=== PATIENT | female | born 1995 | race Caucasian/White ===

== ENCOUNTER 2016-12-26 07:09 | Emergency (ER) | payer OTHER ==
[2016-12-26 07:17] VITALS: BP 124/68
[2016-12-26] MEDS ORDERED: Sodium Chloride 0.9% 1,000 ML IV STA (07:31)
[2016-12-26] MEDS ORDERED: Ondansetron 4 MG/2 ML SDV IVPUSH ONE (07:31)
[2016-12-26] MEDS ORDERED: Acetaminophen 325 MG Tab PO ONE (07:32)
--- NOTE | 2016-12-26 07:37 | EDM.PDOC ---
ED HPI GENERAL MEDICAL PROBLEM - General Chief Complaint: Abdominal Pain Stated Complaint: ABDOMINAL PAIN Time Seen by Provider: 12/26/16 07:27 Source of Information: Reports: Patient History Limitations: Reports: No Limitations - History of Present Illness INITIAL COMMENTS - FREE TEXT/NARRATIVE: The patient presents with right lower abdominal pain. This started yesterday. The pain started in the right upper abdomen but now it has moved to the right lower abdomen. She has nausea but no vomiting. She has no appetite. She denies fever or chills. She has no dysuria or hematuria. The pain is sharp and constant now. She still has her gallbladder and her appendix. She does not think she is . She took a test yesterday that was negative. Onset: Gradual Duration: Day(s): (2) Location: Reports: Abdomen Quality: Reports: Sharp Severity: Moderate Improves with: Reports: None Worsens with: Reports: None Associated Symptoms: Reports: Nausea/Vomiting. Denies: Chest Pain, Cough, Fever /Chills, Headaches, Shortness of Breath Lower Abdominal Pain Score (Numeric/FACES): 8 - Related Data Allergies Allergy/AdvReac Type Severity Reaction Status Date / Time No Known Allergies Allergy Verified 12/26/16 07:17 Home Meds: Home Meds Nitrofurantoin Pike/Macrocryst [Macrobid] 100 mg PO BID #10 cap 12/26/16 [Rx] Ondansetron [Zofran ODT] 4 mg PO Q6H PRN #20 tab.dis 12/26/16 [Rx] Past Medical History - Past Health History Medical/Surgical History: Denies Medical/Surgical History Social & Family History - Tobacco Use Smoking Status *Q: Never Smoker - Caffeine Use Caffeine Use: Reports: Coffee - Recreational Drug Use Recreational Drug Use: No ED ROS GENERAL - Review of Systems Review Of Systems: See Below Constitutional: Reports: No Symptoms HEENT: Reports: No Symptoms Respiratory: Reports: No Symptoms Cardiovascular: Reports: No Symptoms Endocrine: Reports: No Symptoms GI/Abdominal: Reports: Abdominal Pain, Nausea. Denies: Diarrhea, Vomiting : Reports: No Symptoms Musculoskeletal: Reports: No Symptoms ED EXAM, GI/ABD - Physical Exam Exam: See Below Exam Limited By: No Limitations General Appearance: Alert, No Apparent Distress Ears: Normal External Exam Nose: Normal Inspection Head: Atraumatic, Normocephalic Neck: Normal Inspection Respiratory/Chest: No Respiratory Distress, Lungs Clear, Normal Breath Sounds Cardiovascular: Regular Rate, Rhythm, No Edema, No Murmur GI/Abdominal Exam: Soft, No Organomegaly, No Mass, Tender (Generalized tenderness with more pain upon palpation to the right lower abdomen) Course - Vital Signs Last Recorded V/S: Last Vital Signs Temp 97.1 F 12/26/16 07:15 Pulse 89 12/26/16 07:15 Resp 18 12/26/16 07:15 BP 124/68 12/26/16 07:15 Pulse Ox 98 12/26/16 07:15 - Orders/Labs/Meds Orders: Active Orders 24 hr Category Date Time Status Peripheral IV Care [RC] . DIRECTED Care 12/26/16 07:32 Active Sodium Chloride 0.9% [Saline Flush] Med 12/26/16 07:31 Active 10 ml FLUSH ASDIRECTED PRN ED Antiemetic Medication Reflex [OM.PC] Stat Oth 12/26/16 07:31 Ordered Peripheral IV Insertion Adult [OM.PC] Stat Oth 12/26/16 07:31 Ordered Medication Orders Sodium Chloride (Saline Flush) 10 ml FLUSH ASDIRECTED PRN PRN Reason: Keep Vein Open Last Admin: 12/26/16 09:08 Dose: 10 ml Admin: 12/26/16 07:44 Dose: 10 ml Labs: Laboratory Tests 12/26/16 12/26/16 12/26/16 Range/Units 07:19 07:19 07:30 WBC 6.51 (3.98-10.04) K/mm3 RBC 5.33 H (3.98-5.22) M/mm3 Hgb 14.8 (11.2-15.7) gm/L Hct 43.3 (34.1-44.9) % MCV 81.2 (79.4-94.8) fl MCH 27.8 (25.6-32.2) pg MCHC 34.2 (32.2-35.5) g/dl RDW Std Deviation 40.9 (36.4-46.3) fL Plt Count 358 (182-369) K/mm3 MPV 11.6 (9.4-12.3) fl Neut % (Auto) 57.2 (34.0-71.1) % Lymph % (Auto) 30.4 (19.3-51.7) % Pike % (Auto) 8.8 (4.7-12.5) % Eos % (Auto) 2.8 (0.7-5.8) Baso % (Auto) 0.6 (0.1-1.2) % Neut # (Auto) 3.73 (1.56-6.13) K/mm3 Lymph # (Auto) 1.98 (1.18-3.74) K/mm3 Pike # (Auto) 0.57 H (0.24-0.36) K/mm3 Eos # (Auto) 0.18 (0.04-0.36) K/mm3 Baso # (Auto) 0.04 (0.01-0.08) K/mm3 Sodium (136-145) mEq/L Potassium (3.5-5.1) mEq/L Chloride (98-107) mEq/L Carbon Dioxide (21-32) mEq/L Anion Gap (5-15) BUN (7-18) mg/dL Creatinine (0.55-1.02) mg/dL Est Cr Clr Drug Dosing mL/min Estimated GFR (MDRD) (>60) mL/min BUN/Creatinine Ratio (14-18) Glucose (74-106) mg/dL Calcium (8.5-10.1) mg/dL Total Bilirubin (0.2-1.0) mg/dL AST (15-37) U/L ALT (14-59) U/L Alkaline Phosphatase (46-116) U/L Total Protein (6.4-8.2) g/dl Albumin (3.4-5.0) g/dl Globulin gm/dL Albumin/Globulin Ratio (1-2) Lipase (73-393) U/L Urine Color Yellow (Yellow) Urine Appearance Slt cloudy H (Clear) Urine pH 6.0 (5.0-8.0) Ur Specific [place] 1.025 (1.005-1.030) Urine Protein Negative (Negative) Urine Glucose (UA) Negative (Negative) Urine Ketones Negative (Negative) Urine Occult Blood Negative (Negative) Urine Nitrite Negative (Negative) Urine Bilirubin Negative (Negative) Urine Urobilinogen 0.2 (0.2-1.0) Ur Leukocyte Esterase 1+ H (Negative) Urine RBC Not seen (0-5) /hpf Urine WBC 5-10 H (0-5) /hpf Ur Epithelial Cells 0-5 (0-5) /hpf Amorphous Sediment Few H (NOT SEEN) /hpf Urine Bacteria Many H (FEW) /hpf Urine Mucus Few (FEW) /hpf Urine HCG, Qual Negative (NEGATIVE) 12/26/16 Range/Units 07:30 WBC (3.98-10.04) K/mm3 RBC (3.98-5.22) M/mm3 Hgb (11.2-15.7) gm/L Hct (34.1-44.9) % MCV (79.4-94.8) fl MCH (25.6-32.2) pg MCHC (32.2-35.5) g/dl RDW Std Deviation (36.4-46.3) fL Plt Count (182-369) K/mm3 MPV (9.4-12.3) fl Neut % (Auto) (34.0-71.1) % Lymph % (Auto) (19.3-51.7) % Pike % (Auto) (4.7-12.5) % Eos % (Auto) (0.7-5.8) Baso % (Auto) (0.1-1.2) % Neut # (Auto) (1.56-6.13) K/mm3 Lymph # (Auto) (1.18-3.74) K/mm3 Pike # (Auto) (0.24-0.36) K/mm3 Eos # (Auto) (0.04-0.36) K/mm3 Baso # (Auto) (0.01-0.08) K/mm3 Sodium 142 (136-145) mEq/L Potassium 3.7 (3.5-5.1) mEq/L Chloride 107 (98-107) mEq/L Carbon Dioxide 24 (21-32) mEq/L Anion Gap 14.7 (5-15) BUN 12 (7-18) mg/dL Creatinine 0.8 (0.55-1.02) mg/dL Est Cr Clr Drug Dosing 108.17 mL/min Estimated GFR (MDRD) > 60 (>60) mL/min BUN/Creatinine Ratio 15.0 (14-18) Glucose 104 (74-106) mg/dL Calcium 9.0 (8.5-10.1) mg/dL Total Bilirubin 1.1 H (0.2-1.0) mg/dL AST 20 (15-37) U/L ALT 26 (14-59) U/L Alkaline Phosphatase 118 H (46-116) U/L Total Protein 7.0 (6.4-8.2) g/dl Albumin 3.3 L (3.4-5.0) g/dl Globulin 3.7 gm/dL Albumin/Globulin Ratio 0.9 L (1-2) Lipase 173 (73-393) U/L Urine Color (Yellow) Urine Appearance (Clear) Urine pH (5.0-8.0) Ur Specific [place] (1.005-1.030) Urine Protein (Negative) Urine Glucose (UA) (Negative) Urine Ketones (Negative) Urine Occult Blood (Negative) Urine Nitrite (Negative) Urine Bilirubin (Negative) Urine Urobilinogen (0.2-1.0) Ur Leukocyte Esterase (Negative) Urine RBC (0-5) /hpf Urine WBC (0-5) /hpf Ur Epithelial Cells (0-5) /hpf Amorphous Sediment (NOT SEEN) /hpf Urine Bacteria (FEW) /hpf Urine Mucus (FEW) /hpf Urine HCG, Qual (NEGATIVE) Meds: Medications Generic Name Dose Route Start Last Admin Trade Name Freq PRN Reason Stop Dose Admin Sodium Chloride 10 ml 12/26/16 07:31 12/26/16 09:08 Saline Flush FLUSH 10 ml ASDIRECTED PRN Administration Keep Vein Open Discontinued Medications Generic Name Dose Route Start Last Admin Trade Name Freq PRN Reason Stop Dose Admin Acetaminophen 975 mg 12/26/16 07:32 12/26/16 07:44 Tylenol PO 12/26/16 07:33 975 mg NOW ONE Administration Diatrizoate Meglum/Diatrizoate Sod 90 ml 12/26/16 07:50 12/26/16 09:07 Gastrografin 37% PO 12/26/16 07:51 90 ml ONETIME ONE Administration Sodium Chloride 1,000 mls @ 1,000 mls/hr 12/26/16 07:31 12/26/16 07:42 Normal Saline IV 12/26/16 08:30 1,000 mls/hr .BOLUS STA Administration Iopamidol 125 ml 12/26/16 07:50 12/26/16 09:07 Isovue-300 (61%) IVPUSH 12/26/16 07:51 125 ml ONETIME ONE Administration Ondansetron HCl 4 mg 12/26/16 07:31 12/26/16 07:43 Zofran IVPUSH 12/26/16 07:32 4 mg ONETIME ONE Administration Tramadol HCl 100 mg 12/26/16 09:50 Ultram PO 12/26/16 09:51 ONETIME ONE - Re-Assessments/Exams Free Text/Narrative Re-Assessment/Exam: 12/26/16 07:36 I ordered an IV NS 1L bolus, zofran 4mg IV, tylenol 975mg PO, labs, UA and a CT of her abdomen and pelvis. 12/26/16 09:51 Her CBC looked good with a normal WBC. Her CMP looked good. Her UA shows a UTI. Her HCG was negative. Her CT of her abdomen and pelvis shows normal appendix is seen. Several slightly prominent lymph nodes noted within the right lower abdomen possibly due to so-called mesenteric adenitis. No additional abnormality is seen on CT study of the abdomen and pelvis. Her pain is coming back. I ordered some ultram. I will give her macrobid for the UTI and zofran for any nausea or vomiting. Departure - Departure Time of Disposition: 09:55 Disposition: Home, Self-Care 01 Condition: Good Clinical Impression: Mesenteric adenitis UTI (urinary tract infection) Qualifiers: Urinary tract infection type: acute cystitis Hematuria presence: without hematuria Qualified Code(s): N30.00 - Acute cystitis without hematuria - Discharge Information Prescriptions: Nitrofurantoin Pike/Macrocryst [Macrobid] 100 mg PO BID #10 cap Ondansetron [Zofran ODT] 4 mg PO Q6H PRN #20 tab.dis PRN Reason: Nausea/Vomiting Referrals: Concepcion Neville DO [Primary Care Provider] - 1 Week Forms: ED Department Discharge, ED Return to Work/School Form Additional Instructions: Take the macrobid 500mg 2 times per day for 5 days. Take the zofran 1 pill every 6 hours as needed for nausea or vomiting. This mesenteric adenitis is cause by a virus and needs to run it course over the next week. Please return if you have more pain or if you cannot keep anything down. Try motrin or tylenol for pain as needed. - My Orders Last 24 Hours: My Active Orders 12/26/16 07:31 Sodium Chloride 0.9% [Saline Flush] 10 ml FLUSH ASDIRECTED PRN ED Antiemetic Medication Reflex [OM.PC] Stat Peripheral IV Insertion Adult [OM.PC] Stat 12/26/16 07:32 Peripheral IV Care [RC] . DIRECTED - Assessment/Plan Last 24 Hours: My Active Orders 12/26/16 07:31 Sodium Chloride 0.9% [Saline Flush] 10 ml FLUSH ASDIRECTED PRN ED Antiemetic Medication Reflex [OM.PC] Stat Peripheral IV Insertion Adult [OM.PC] Stat 12/26/16 07:32 Peripheral IV Care [RC] . DIRECTED
[2016-12-26] MEDS: Sodium Chloride 0.9% 10 ML Syringe FLUSH PRN ×2 (07:44→09:08)
[2016-12-26] MEDS ORDERED: Diatrizoate Meglumine/Diatrizoate Sodium 37% 120 ML Bottle PO ONE (07:50)
[2016-12-26] MEDS ORDERED: Iopamidol 612 MG/ML 150 ML Bottle IVPUSH ONE (07:50)
--- NOTE | 2016-12-26 09:27 | CT ---
CT abdomen and pelvis Technique: Multiple axial sections were obtained from above the dome of the diaphragm inferiorly through the pubic symphysis. Intravenous and oral contrast was utilized. Comparison: No prior abdominal imaging. Findings: Appendix is seen and appears normal. Several slightly prominent lymph nodes are seen within the mesentery and adjacent to the cecum. Difficult to exclude mesenteric adenitis. Visualized lung bases are clear. Liver shows no focal abnormality. Spleen appears within normal limits. Adrenal glands show no nodule. Pancreas is within normal limits. Gallbladder shows no calcified gallstones. Kidneys show symmetric contrast enhancement without hydronephrosis or mass. Aorta shows no aneurysmal dilatation. No retroperitoneal adenopathy is seen. No pelvic mass or adenopathy is seen. Bone window settings were reviewed which appears within normal limits for the patient's age. Impression: 1. Normal appendix is seen. Several slightly prominent lymph nodes noted within the right lower abdomen possibly due to so-called mesenteric adenitis. 2. No additional abnormality is seen on CT study of the abdomen and pelvis. Diagnostic code #2
[2016-12-26] MEDS ORDERED: traMADol 50 MG Tab PO ONE (09:50)
== END 2016-12-26 10:08 | disposition home or self-care (01) ==
LOC: JD.ED 07:09
DX: I88.0 Nonspecific mesenteric lymphadenitis (principal); N30.00 Acute cystitis without hematuria
CPT/HCPCS: 36415; 74177; 80053; 81001; 81025; 83690; 85025; 96361; 96374; 99284; A9270; J2405; J7040; J7050; Q9963; Q9967

== ENCOUNTER 2017-09-11 18:53 | Emergency (ER) | payer OTHER ==
--- NOTE | 2017-09-11 19:01 | EDM.PDOC ---
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 Associated diffuse lower abdominal cramps and pressure discomfort also pressure discomfort in her lower back. She has not yet had much in the way of care. She scheduled for an ultrasound next week and then to see Dr. Bravo the following week. She states her last menstrual period was Apr.15. These dates would place her at a 17 week completed gestation. Cycles have been quite regular up until that time. No previous abdominal surgery. He states it was more spotting today there was not enough blood to soak a pad. And bleeding at this point time seems to have eased up. So had quite a bit of problems with constipation during the from vitamins. Onset: Today Onset Date: 09/11/17 Onset Time: 12:00 Duration: Hour(s): Location: Reports: Abdomen (Spotting per vagina with diffuse lower abdominal discomfort.), Other Quality: Reports: Ache ( Associated menstrual cramps.), Pressure, Other Severity: Moderate (Cramps) Improves with: Reports: None Worsens with: Reports: None Context: Reports: Other. Denies: Activity, Exercise, Lifting, Sick Contact, Trauma Associated Symptoms: Reports: Malaise, Nausea/Vomiting. 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 (see below) (None.) Lower Abdomen Pain Score (Numeric/FACES): 2 - Related Data Allergies Allergy/AdvReac Type Severity Reaction Status Date / Time No Known Allergies Allergy Verified 09/11/17 19:08 Home Meds: Home Meds Progesterone,Micronized [Progesterone] 100 mg PO BID 09/11/17 [History] metFORMIN [Glucophage] 1,000 mg PO BIDMEALS 09/11/17 [History] Past Medical History - Past Health History Medical/Surgical History: Denies Medical/Surgical History : 1 Para: 0 Social & Family History - Family History Family Medical History: Noncontributory - Caffeine Use Caffeine Use: Reports: Coffee - Living Situation & Occupation Living situation: Reports: Occupation: Employed ED ROS GENERAL - Review of Systems Review Of Systems: See Below Constitutional: Reports: Fatigue. Denies: Fever, Chills HEENT: Reports: No Symptoms Respiratory: Reports: No Symptoms Cardiovascular: Reports: No Symptoms Endocrine: Reports: No Symptoms GI/Abdominal: Reports: Abdominal Pain (See history present illness), Constipation : Reports: Frequency, Other (Spotting per vagina started today with associated menstrual cramps.) Musculoskeletal: Reports: Back Pain Skin: Reports: No Symptoms (Mild low back pressure discomfort) Neurological: Reports: No Symptoms Psychiatric: Reports: No Symptoms ED EXAM - Physical Exam Exam: See Below Exam Limited By: No Limitations General Appearance: Alert, WD/WN, No Apparent Distress Eye Exam: Bilateral Eye: Normal Inspection Respiratory/Chest: No Respiratory Distress, Lungs Clear, Normal Breath Sounds, No Accessory Muscle Use Cardiovascular: Normal Peripheral Pulses, Regular Rate, Rhythm, No Edema, No Gallop, No Murmur GI/Abdominal Exam: Normal Bowel Sounds, Soft, Non-Tender, No Organomegaly, No Abnormal Bruit, No Mass, Pelvis Stable, Other (Uterus is not palpable abdominally.) (Female) Exam: Enlarged Uterus (Uterus is anteverted and about 6-8 weeks in gestation. It is moderately tender to touch. Note this is much smaller in size than her dates would suggest.), Vaginal Bleeding (Darker blood noted on gloved fingers.). No: Adnexal Mass (L), Adnexal Mass (R), Cervical Dilatation (Cervix is closed.) Extremities: Normal Inspection, Normal Range of Motion, Non-Tender, No Pedal Edema Neurological: Alert, Oriented, CN II-XII Intact, Normal Cognition, Normal Gait Psychiatric: Normal Affect, Normal Mood Skin Exam: Warm, Dry, Intact, Normal Color, No Rash Course - Vital Signs Last Recorded V/S: Last Vital Signs Temp 36.2 C 09/11/17 19:09 Pulse 90 09/11/17 19:09 Resp 18 09/11/17 19:09 BP 120/72 09/11/17 19:09 Pulse Ox 99 09/11/17 19:09 - Orders/Labs/Meds Orders: Active Orders 24 hr Category Date Time Status OB Transvaginal [US] Stat Exams 09/11/17 19:32 Taken PATIENT RETYPE [BBK] Stat Lab 09/11/17 19:25 Results RH IMMUNE GLOBULIN [BBK] Stat Lab 09/11/17 19:25 Results RHIG WORKUP, [BBK] Stat Lab 09/11/17 19:25 Results TYPE AND SCREEN [BBK] Stat Lab 09/11/17 19:25 Results URINALYSIS W/MICROSCOPIC [UA W/MICROSCOPIC] [URIN] Stat Lab 09/11/17 19:31 Ordered Labs: Laboratory Tests 09/11/17 09/11/17 09/11/17 Range/Units 19:25 19:25 19:25 WBC 10.33 H (3.98-10.04) K/mm3 RBC 5.11 (3.98-5.22) M/mm3 Hgb 14.3 (11.2-15.7) gm/L Hct 41.9 (34.1-44.9) % MCV 82.0 (79.4-94.8) fl MCH 28.0 (25.6-32.2) pg MCHC 34.1 (32.2-35.5) g/dl RDW Std Deviation 43.0 (36.4-46.3) fL Plt Count 345 (182-369) K/mm3 MPV 12.1 (9.4-12.3) fl Neutrophils % (Manual) 65 H (40-60) % Band Neutrophils % 0 (0-10) % Lymphocytes % (Manual) 30 (20-40) % Atypical Lymphs % 0 % Monocytes % (Manual) 0 L (2-10) % Eosinophils % (Manual) 3 (0.7-5.8) % Basophils % (Manual) 1 (0.1-1.2) Myelocytes % 1 Platelet Estimate Adequate RBC Morph Comment Normal Sodium 137 (136-145) mEq/L Potassium 3.6 (3.5-5.1) mEq/L Chloride 102 (98-107) mEq/L Carbon Dioxide 24 (21-32) mEq/L Anion Gap 14.6 (5-15) BUN 11 (7-18) mg/dL Creatinine 0.9 (0.55-1.02) mg/dL Est Cr Clr Drug Dosing 96.15 mL/min Estimated GFR (MDRD) > 60 (>60) mL/min BUN/Creatinine Ratio 12.2 L (14-18) Glucose 95 (74-106) mg/dL Calcium 9.2 (8.5-10.1) mg/dL Total Bilirubin 0.5 (0.2-1.0) mg/dL AST 19 (15-37) U/L ALT 32 (14-59) U/L Alkaline Phosphatase 104 (46-116) U/L Total Protein 6.9 (6.4-8.2) g/dl Albumin 3.3 L (3.4-5.0) g/dl Globulin 3.6 gm/dL Albumin/Globulin Ratio 0.9 L (1-2) HCG, Quant 35808.0 mIU/mL Urine Color (Yellow) Urine Appearance (Clear) Urine pH (5.0-8.0) Ur Specific [place] (1.005-1.030) Urine Protein (Negative) Urine Glucose (UA) (Negative) Urine Ketones (Negative) Urine Occult Blood (Negative) Urine Nitrite (Negative) Urine Bilirubin (Negative) Urine Urobilinogen (0.2-1.0) Ur Leukocyte Esterase (Negative) Urine RBC (0-5) /hpf Urine WBC (0-5) /hpf Ur Epithelial Cells (0-5) /hpf Urine Bacteria (FEW) /hpf Urine Mucus (FEW) /hpf Blood Type AB NEGATIVE Gel Antibody Screen Negative Rhogam Indicated Yes 09/11/17 Range/Units 19:31 WBC (3.98-10.04) K/mm3 RBC (3.98-5.22) M/mm3 Hgb (11.2-15.7) gm/L Hct (34.1-44.9) % MCV (79.4-94.8) fl MCH (25.6-32.2) pg MCHC (32.2-35.5) g/dl RDW Std Deviation (36.4-46.3) fL Plt Count (182-369) K/mm3 MPV (9.4-12.3) fl Neutrophils % (Manual) (40-60) % Band Neutrophils % (0-10) % Lymphocytes % (Manual) (20-40) % Atypical Lymphs % % Monocytes % (Manual) (2-10) % Eosinophils % (Manual) (0.7-5.8) % Basophils % (Manual) (0.1-1.2) Myelocytes % Platelet Estimate RBC Morph Comment Sodium (136-145) mEq/L Potassium (3.5-5.1) mEq/L Chloride (98-107) mEq/L Carbon Dioxide (21-32) mEq/L Anion Gap (5-15) BUN (7-18) mg/dL Creatinine (0.55-1.02) mg/dL Est Cr Clr Drug Dosing mL/min Estimated GFR (MDRD) (>60) mL/min BUN/Creatinine Ratio (14-18) Glucose (74-106) mg/dL Calcium (8.5-10.1) mg/dL Total Bilirubin (0.2-1.0) mg/dL AST (15-37) U/L ALT (14-59) U/L Alkaline Phosphatase (46-116) U/L Total Protein (6.4-8.2) g/dl Albumin (3.4-5.0) g/dl Globulin gm/dL Albumin/Globulin Ratio (1-2) HCG, Quant mIU/mL Urine Color Yellow (Yellow) Urine Appearance Clear (Clear) Urine pH 6.5 (5.0-8.0) Ur Specific [place] 1.010 (1.005-1.030) Urine Protein Negative (Negative) Urine Glucose (UA) Negative (Negative) Urine Ketones Negative (Negative) Urine Occult Blood 3+ H (Negative) Urine Nitrite Negative (Negative) Urine Bilirubin Negative (Negative) Urine Urobilinogen 0.2 (0.2-1.0) Ur Leukocyte Esterase Negative (Negative) Urine RBC 0-5 (0-5) /hpf Urine WBC 0-5 (0-5) /hpf Ur Epithelial Cells 0-5 (0-5) /hpf Urine Bacteria Occasional (FEW) /hpf Urine Mucus Not seen (FEW) /hpf Blood Type Gel Antibody Screen Rhogam Indicated - Radiology Interpretation Free Text/Narrative:: 21-year-old female presents the ED for evaluation of spotting per vagina in . She is clinically right around 12 weeks gestation. Last menstrual period was April 15. She has not yet had much in the way care. She is scheduled for a ultrasound next week and to see Dr. Bravo the following week. She states that has not passed enough blood per vagina to soak a pad and the bleeding seems to be eased up over the last few hours. Still has a lot of lower abdominal suprapubic pressure discomfort radiating into her lower back. Of note she is 1 para 0. Associated problems with constipation secondary to use of vitamins. Benign abdominal examination. - Re-Assessments/Exams Free Text/Narrative Re-Assessment/Exam: 09/11/17 20:26 transvaginal ultrasound reveals a gestational sac that is corresponding to gestational age of 6 weeks 6 days. No pole or yolk sac is appreciated indicating a blighted ovum. There is a small subchorionic hemorrhage or hematoma measuring 2.7 x 2.1 x 0.9 cm. His fluid is noted within the cervix no myometrial masses appreciated trace fluid within the cul-de-sac as well. Patient advised in this regard that she will go onto a miscarriage. Was to be expected be heavier than normal. She may use Motrin 600 mg every 6 hours as needed for relief of abdominal pain and cramping. 09/11/17 20:29 Labs revealed a white count of 10.33 with 65% neutrophils and no bands reported. Hemoglobin is good at 14.3 with hematocrit of 41.9. Sodium is 137 with a potassium of 3.6. Chloride is 102 with a bicarbonate 24. Anion gap is 14.6. B1 is 11 with a creatinine of 0.9. EGFR is greater than 60. Glucose is 95. Calcium is 9.2. Liver function is normal. Albumin fraction slightly low at 3.3. HCG is 49,738. This would correlate with a 4-5 week gestation. Urinalysis shows 3+ blood. No signs of infection. Blood type is not yet available. 09/11/17: blood type is AB-. She will therefore require RhoGAM. Order placed into lab. Departure - Departure Time of Disposition: 21:12 Disposition: Home, Self-Care 01 Condition: Fair Clinical Impression: Inevitable spontaneous - Discharge Information Referrals: Bernarda Smith PA-C [Primary Care Provider] - Forms: ED Department Discharge Additional Instructions: Evaluation the emergency room today in regards to known of on clear duration. Last menstrual period was around April 15 which would make you 17 weeks again. However examination did not reveal the uterus to be enlarged enough to support a 17 week . It was more like 6-8 weeks to us in size. Cervix is closed. He had developed spotting per vagina most of the day today the/with increased abdominal cramping pain. Hormone of is still positive at greater than 49,000. Ultrasound however shows that what we call an empty gestational sac. This means that there is a that would correlate with 6 weeks and 6 days but there is no evidence of any fetus or yolk sac. His mother nature turned off this likely due to congenital abnormalities of the baby that were incompatible with life. It does this often 3 -4 weeks ago and miscarriage starts to occur now. We call this an inevitable miscarriage. Due to your blood typing AB Rh- you required a shot of RhoGAM to prevent sensitization of future pregnancies to Rh- red blood cells. Treatment now is Motrin 600 mg every 6 hours needed for relief of abdominal pain and cramping. Expect a much heavier period than what you've expression the past for the next 2 days. He would need to return to the emergency department or follow- up with Dr. Bravo in the clinic if you are soaking a pad per hour for more than 2 consecutive hours. Suggest follow-up with Dr. Bravo in one week's time. - My Orders Last 24 Hours: My Active Orders 09/11/17 19:25 PATIENT RETYPE [BBK] Stat RH IMMUNE GLOBULIN [BBK] Stat RHIG WORKUP, [BBK] Stat TYPE AND SCREEN [BBK] Stat 09/11/17 19:31 URINALYSIS W/MICROSCOPIC [UA W/MICROSCOPIC] [URIN] Stat 09/11/17 19:32 OB Transvaginal [US] Stat - Assessment/Plan Last 24 Hours: My Active Orders 09/11/17 19:25 PATIENT RETYPE [BBK] Stat RH IMMUNE GLOBULIN [BBK] Stat RHIG WORKUP, [BBK] Stat TYPE AND SCREEN [BBK] Stat 09/11/17 19:31 URINALYSIS W/MICROSCOPIC [UA W/MICROSCOPIC] [URIN] Stat 09/11/17 19:32 OB Transvaginal [US] Stat
[2017-09-11 19:13] VITALS: BP 120/72
--- NOTE | 2017-09-12 08:40 | US ---
First trimester obstetrical ultrasound: Multiple real-time images were obtained transvaginally. Comparison: No prior study for current . Dates: LMP: LMP given as 04/15/17, AKBAR 01/20/18, gestational age 21 weeks 2 days Current ultrasound: AKBAR 05/01/18, gestational age 6 weeks 6 days Single gestational sac is seen. No yolk sac or pole are seen. Small subchorionic hemorrhage is seen. Maternal ovaries are within normal limits. Minimal fluid is seen within the endocervical canal. Minimal free fluid within the cul-de-sac is seen which is felt to be incidental. Impression: 1. Single intrauterine gestational sac without pole or yolk sac suspicious for blighted ovum. 2. Other incidental findings as noted above. Diagnostic code #3 I agree with preliminary report from [facility], finalized at 09/11/17, 9:56 PM Central Time
== END 2017-09-11 21:21 | disposition home or self-care (01) ==
LOC: JD.ED 18:53
DX: O03.9 Complete or unspecified spontaneous abortion without complication (principal); Z3A.12 12 weeks gestation of pregnancy
CPT/HCPCS: 36415; 76817; 80053; 81001; 84702; 85007; 85027; 86850; 86900; 86901; 96372; 99284; J2790

== ENCOUNTER 2018-05-18 17:22 | Emergency (ER) | payer OTHER ==
[2018-05-18 17:40] VITALS: BP 124/74
--- NOTE | 2018-05-18 18:07 | EDM.PDOC ---
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 She states that she is around 7-8 weeks and she had a previous miscarriage in September 2017 so was worried that it might be something more ominous than just urinary symptoms. She has had an early visit with Dr. Willoughby and was assured that everything was going as planned. She denies any pelvic pain, discharge, or bleeding. She states that she does have urinary frequency and urgency that started today along with the pressure. She further denies any flank pain or back pain at this time, she states that she does have some mild nausea but has not vomited nor had diarrhea and is slightly constipated as well. She states that she has had multiple UTIs in the past. She also notes that she still has her appendix and gallbladder. She further denies any fever/chills. 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 - Past Surgical History HEENT Surgical History: Reports: Oral Surgery Social & Family History - Family History Family Medical History: Noncontributory - Tobacco Use Smoking Status *Q: Never Smoker - Caffeine Use Caffeine Use: Reports: Coffee - Recreational Drug Use Recreational Drug Use: No - Living Situation & Occupation Living situation: Reports: Occupation: Employed ED ROS GENERAL - Review of Systems Review Of Systems: See Below Constitutional: Denies: Fever, Chills, Malaise HEENT: Reports: No Symptoms Respiratory: Reports: No Symptoms Cardiovascular: Reports: No Symptoms Endocrine: Reports: No Symptoms GI/Abdominal: Reports: Constipation, Nausea. Denies: Diarrhea, Vomiting : Reports: Dysuria (Pelvic pressure), Frequency, Urgency. Denies: Discharge, Hematuria Musculoskeletal: Reports: No Symptoms Skin: Reports: No Symptoms Neurological: Reports: No Symptoms Psychiatric: Reports: No Symptoms Hematologic/Lymphatic: Reports: No Symptoms Immunologic: Reports: No Symptoms ED EXAM - Physical Exam Exam: See Below Exam Limited By: No Limitations General Appearance: Alert, WD/WN, No Apparent Distress Throat/Mouth: Normal Inspection, Normal Oropharynx, No Airway Compromise Respiratory/Chest: No Respiratory Distress, Lungs Clear, Normal Breath Sounds, No Accessory Muscle Use, Chest Non-Tender Cardiovascular: Normal Peripheral Pulses, Regular Rate, Rhythm, No Murmur GI/Abdominal Exam: Normal Bowel Sounds, Soft, Non-Tender, No Distention, No Mass (Female) Exam: Other (Deferred) Back Exam: Normal Inspection, Full Range of Motion Extremities: Normal Inspection, Normal Capillary Refill Neurological: Alert, Oriented, Normal Cognition, No Motor/Sensory Deficits Psychiatric: Normal Affect, Normal Mood Skin Exam: Warm, Dry, Intact, Normal Color, No Rash Course - Vital Signs Last Recorded V/S: Last Vital Signs Temp 98.2 F 05/18/18 17:40 Pulse 83 05/18/18 17:40 Resp 20 05/18/18 17:40 BP 124/74 05/18/18 17:40 Pulse Ox 100 05/18/18 17:40 - Orders/Labs/Meds Labs: Laboratory Tests 05/18/18 Range/Units 18:40 Urine Color Yellow (Yellow) Urine Appearance Clear (Clear) Urine pH 7.0 (5.0-8.0) Ur Specific [place] 1.020 (1.005-1.030) Urine Protein Negative (Negative) Urine Glucose (UA) Negative (Negative) Urine Ketones Negative (Negative) Urine Occult Blood Negative (Negative) Urine Nitrite Negative (Negative) Urine Bilirubin Negative (Negative) Urine Urobilinogen 0.2 (0.2-1.0) Ur Leukocyte Esterase Negative (Negative) Urine RBC 0-5 (0-5) /hpf Urine WBC 0-5 (0-5) /hpf Ur Epithelial Cells 0-5 (0-5) /hpf Urine Bacteria Few (FEW) /hpf Urine Mucus Not seen (FEW) /hpf - Re-Assessments/Exams Free Text/Narrative Re-Assessment/Exam: 05/18/18 18:32 Patient presents to the ED for evaluation of pelvic pressure and frequency and urinary urgency. A UA was obtained for evaluation, and in lieu of other symptoms such as vaginal bleeding, cramping, or discharge I do not believe that this is any type of miscarriage in nature at this time. The patient was assured that this did not sound as if it were a miscarriage and that we would wait for the UA results to determine further testing. 05/18/18 19:05 The UA did return and is completely clean and is not acutely infected. I will reassure the patient that she does not have any further signs or symptoms of a possible miscarriage and we'll recommend that she take it easy for the next few days to see if this doesn't alleviate some of her symptoms. Departure - Departure Time of Disposition: 19:05 Disposition: Home, Self-Care 01 Condition: Fair Clinical Impression: Pelvic pressure in - Discharge Information *PRESCRIPTION DRUG MONITORING PROGRAM REVIEWED*: No *COPY OF PRESCRIPTION DRUG MONITORING REPORT IN PATIENT [place]: No Instructions: Pelvic Pain, Female, [id number] Referrals: Tenisha Willoughby MD [Primary Care Provider] - Forms: ED Department Discharge Additional Instructions: You have been evaluated in the ED for your pelvic pressure and urinary frequency. Your urinalysis did not demonstrate any signs of acute infection in this visit. It is unlikely that your symptoms are due to any type of miscarriage. Recommend that you do not over-exert yourself for the next few days to see if this doesn't help alleviate the symptoms. Please keep your appointment with your OB as previously scheduled. If you should develop vaginal bleeding, increased pelvic cramping, or vaginal discharge, this would be cause for concern and you should come back to the ED immediately for re-evaluation. Please return to the ED if your symptoms should change or worsen.
== END 2018-05-18 19:19 | disposition home or self-care (01) ==
LOC: JD.ED 17:22 → SUPCPDRO 17:22 → JD.ED 19:19
DX: O99.89 Other specified diseases and conditions complicating pregnancy, childbirth and the puerperium (principal); R10.2 Pelvic and perineal pain
CPT/HCPCS: 81001; 99284

== ENCOUNTER 2018-08-23 20:29 | Emergency (ER) | payer OTHER ==
[2018-08-23 20:59] VITALS: BP 133/84
[2018-08-23] MEDS ORDERED: Acetaminophen 325 MG Tab PO ONE (21:57)
[2018-08-23] MEDS ORDERED: Sodium Chloride 0.9% 10 ML Syringe FLUSH PRN (21:57)
[2018-08-23] MEDS ORDERED: Ondansetron 4 MG/2 ML SDV IVPUSH ONE (21:57)
[2018-08-23] MEDS ORDERED: Sodium Chloride 0.9% 1,000 ML IV SCH (22:00)
--- NOTE | 2018-08-23 22:03 | EDM.PDOC ---
ED HPI GENERAL MEDICAL PROBLEM - General Chief Complaint: Gastrointestinal Problem Stated Complaint: SORE RIBS AND CHEST 19WKS PG Time Seen by Provider: 08/23/18 21:41 Source of Information: Reports: Patient, RN Notes Reviewed History Limitations: Reports: No Limitations - History of Present Illness INITIAL COMMENTS - FREE TEXT/NARRATIVE: Patient is a 22-year-old female who presents to the ED for the evaluation of nausea and vomiting. The patient notes that she is 19 weeks . She states that the vomiting started yesterday, and has been on and off since. She states she's not been able to keep much down for liquids or foods. She states that she is also having some diarrhea with this. She states that her ribs are sore due to the vomiting, and would rate this at an 8 out of 10 today. She has not taken any Tylenol for this pain. She states that the nausea started at roughly 4:45 PM yesterday. The patient states that she is still feeling the baby move okay, and is not having any lower abdominal cramping or vaginal bleeding at this time. 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 - Past Surgical History HEENT Surgical History: Reports: Oral Surgery Social & Family History - Family History Family Medical History: Noncontributory - Tobacco Use Smoking Status *Q: Never Smoker - Caffeine Use Caffeine Use: Reports: None - Living Situation & Occupation Living situation: Reports: Occupation: Employed ED ROS GENERAL - Review of Systems Review Of Systems: See Below Constitutional: Denies: Fever, Chills HEENT: Reports: No Symptoms Respiratory: Reports: No Symptoms Cardiovascular: Reports: No Symptoms Endocrine: Reports: No Symptoms GI/Abdominal: Reports: Abdominal Pain (upper abdominal pain), Diarrhea, Decreased Appetite, Nausea, Vomiting : Reports: No Symptoms Musculoskeletal: Reports: No Symptoms Skin: Reports: No Symptoms Neurological: Reports: No Symptoms Psychiatric: Reports: No Symptoms Hematologic/Lymphatic: Reports: No Symptoms Immunologic: Reports: No Symptoms ED EXAM, GI/ABD - Physical Exam Exam: See Below Exam Limited By: No Limitations General Appearance: Alert, WD/WN, No Apparent Distress Respiratory/Chest: No Respiratory Distress, Lungs Clear, Normal Breath Sounds, No Accessory Muscle Use, Chest Non-Tender Cardiovascular: Normal Peripheral Pulses, Regular Rate, Rhythm, No Murmur GI/Abdominal Exam: Normal Bowel Sounds, Soft, No Organomegaly, No Distention, No Mass, Tender (mainly in epigastrium) (Female) Exam: Other ( heart rate is 140bpm.) Extremities: Normal Inspection, Normal Capillary Refill Neurological: Alert, Oriented, Normal Cognition, No Motor/Sensory Deficits Psychiatric: Normal Affect, Normal Mood Skin Exam: Warm, Dry, Intact, Normal Color, No Rash Course - Vital Signs Last Recorded V/S: Last Vital Signs Temp Pulse 87 08/23/18 20:55 Resp 18 08/23/18 20:55 BP 133/84 08/23/18 20:55 Pulse Ox 100 08/23/18 20:55 - Orders/Labs/Meds Orders: Active Orders 24 hr Category Date Time Status Peripheral IV Care [RC] . DIRECTED Care 08/23/18 21:57 Ordered Sodium Chloride 0.9% [Normal Saline] 1,000 ml Med 08/23/18 22:00 Ordered IV ASDIRECTED Sodium Chloride 0.9% [Saline Flush] Med 08/23/18 21:57 Ordered 10 ml FLUSH ASDIRECTED PRN Peripheral IV Insertion Adult [OM.PC] Routine Oth 08/23/18 21:57 Ordered Medication Orders Sodium Chloride (Normal Saline) 1,000 mls @ 999 mls/hr IV ASDIRECTED PAOLA Last Admin: 08/23/18 22:07 Dose: 999 mls/hr Sodium Chloride (Saline Flush) 10 ml FLUSH ASDIRECTED PRN PRN Reason: Keep Vein Open Last Admin: 08/23/18 22:08 Dose: 10 ml Meds: Medications Generic Name Dose Route Start Last Admin Trade Name Freq PRN Reason Stop Dose Admin Sodium Chloride 1,000 mls @ 999 mls/hr 08/23/18 22:00 08/23/18 22:07 Normal Saline IV 999 mls/hr ASDIRECTED PAOLA Administration Sodium Chloride 10 ml 08/23/18 21:57 08/23/18 22:08 Saline Flush FLUSH 10 ml ASDIRECTED PRN Administration Keep Vein Open Discontinued Medications Generic Name Dose Route Start Last Admin Trade Name Aneta PRN Reason Stop Dose Admin Acetaminophen 650 mg 08/23/18 21:57 08/23/18 22:07 Tylenol PO 08/23/18 21:58 650 mg NOW ONE Administration Ondansetron HCl 4 mg 08/23/18 21:57 08/23/18 22:07 Zofran IVPUSH 08/23/18 21:58 4 mg ONETIME ONE Administration - Re-Assessments/Exams Free Text/Narrative Re-Assessment/Exam: 08/23/18 22:02 Patient presents to the ED for the evaluation of nausea vomiting and diarrhea. This likely due to a viral gastroenteritis in nature. Have ordered IV fluids to be started, 4 mg IV Zofran, and 650 mg Tylenol for initial management. 08/23/18 22:57 Patient was reassessed at bedside, and states she is feeling much better. She was not given the 650 mg Tylenol for some reason. I have discontinued this medication, as she does not want to take this at this time. I will discharge her home with general recommendations, after her fluids are completed. Departure - Departure Time of Disposition: 22:58 Disposition: Home, Self-Care 01 Condition: Fair Clinical Impression: Viral gastroenteritis - Discharge Information *PRESCRIPTION DRUG MONITORING PROGRAM REVIEWED*: No *COPY OF PRESCRIPTION DRUG MONITORING REPORT IN PATIENT [place]: No Instructions: Viral Gastroenteritis, Adult, [id number] Referrals: Tenisha Willoughby MD [Primary Care Provider] - Forms: ED Department Discharge Additional Instructions: You have been evaluated in the ED for nausea/vomiting/diarrhea. It is likely that this is caused from a viral gastroenteritis. You have received IV fluid in the ED to help with the dehydration from the vomiting and diarrhea. Over the next 24-48 hours please try to limit diet to clear liquids and advance as tolerate to a bland diet to alleviate symptoms of nausea/vomiting/diarrhea. Please return to the ED if your symptoms should change or worsen. - My Orders Last 24 Hours: My Active Orders 08/23/18 21:57 Peripheral IV Care [RC] . DIRECTED Sodium Chloride 0.9% [Saline Flush] 10 ml FLUSH ASDIRECTED PRN Peripheral IV Insertion Adult [OM.PC] Routine 08/23/18 22:00 Sodium Chloride 0.9% [Normal Saline] 1,000 ml IV ASDIRECTED - Assessment/Plan Last 24 Hours: My Active Orders 08/23/18 21:57 Peripheral IV Care [RC] . DIRECTED Sodium Chloride 0.9% [Saline Flush] 10 ml FLUSH ASDIRECTED PRN Peripheral IV Insertion Adult [OM.PC] Routine 08/23/18 22:00 Sodium Chloride 0.9% [Normal Saline] 1,000 ml IV ASDIRECTED
== END 2018-08-23 23:13 | disposition home or self-care (01) ==
LOC: JD.ED 20:29
DX: O99.89 Other specified diseases and conditions complicating pregnancy, childbirth and the puerperium (principal); A08.4 Viral intestinal infection, unspecified; Z3A.19 19 weeks gestation of pregnancy; Z98.890 Other specified postprocedural states
CPT/HCPCS: 96361; 96374; 99283; A9270; J2405; J7040

== ENCOUNTER 2019-01-14 23:59 | Inpatient (IN) | payer BC ==
[2019-01-15] MEDS ORDERED: fentaNYL 100 MCG/2 ML SDV EPIDUR PRN (00:53)
[2019-01-15] MEDS ORDERED: fentaNYL/Bupivacaine/NS 2 MCG-0.125% 250 ML EPIDUR PRN (00:53)
[2019-01-15] MEDS ORDERED: Ondansetron 4 MG/2 ML SDV IVPUSH PRN (00:53)
[2019-01-15] MEDS ORDERED: ePHEDrine 50 MG/ML SDV IVPUSH PRN (00:53)
--- NOTE | 2019-01-15 00:59 | PCM.PREANE ---
Preanesthetic Assessment - Anesthesia/Transfusion/Family Hx Anesthesia History: No Prior Anesthesia Family History of Anesthesia Reaction: No Transfusion History: No Prior Transfusion(s) Intubation History: Unknown - Review of Systems General: No Symptoms Pulmonary: No Symptoms Cardiovascular: No Symptoms Gastrointestinal: No Symptoms, Nausea Neurological: No Symptoms, Seizure (last seizure at the age of 14.) Other: Reports: None, Diabetes (gestational DM: blood sugar at 2330= 108) - Physical Assessment NPO Status Date: 01/14/19 NPO Status Time: 19:00 Vital Signs: HR:79 BP:124/72 Resp:20 Temp:98.8f Sat:99% Height: 1.7 m Weight: 112.491 kg ASA Class: 2 Mental Status: Alert & Oriented x3 Airway Class: Mallampati = 2 Dentition: Reports: Normal Dentition, Caries Thyro-Mental Finger Breadths: 3 Mouth Opening Finger Breadths: 3 ROM/Head Extension: Full Lungs: Clear to Auscultation, Normal Respiratory Effort Cardiovascular: Regular Rate, Regular Rhythm, No Murmurs - Allergies Allergies/Adverse Reactions: Allergies Allergy/AdvReac Type Severity Reaction Status Date / Time No Known Allergies Allergy Verified 12/27/18 21:26 - Anesthesia Plan Pre-Op Medication Ordered: None - Acknowledgements Anesthesia Type Planned: Epidural Pt an Appropriate Candidate for the Planned Anesthesia: Yes Alternatives and Risks of Anesthesia Discussed w Pt/Guardian: Yes Pt/Guardian Understands and Agrees with Anesthesia Plan: Yes PreAnesthesia Questionnaire - Past Health History Medical/Surgical History: Denies 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
[2019-01-15] MEDS ORDERED: Phenylephrine 1 MG in Sodium Chloride 0.9% 10 ML IV SCH (01:00)
[2019-01-15] MEDS ORDERED: Nalbuphine 10 MG/1 ML Vial IVPUSH PRN (05:32)
[2019-01-15] MEDS ORDERED: Sodium Chloride 0.9% 10 ML Syringe FLUSH PRN (05:32)
--- NOTE | 2019-01-15 05:35 | PCM.LDHP ---
L&D History of Present Illness - General Date of Service: 01/15/19 Admit Problem/Dx: Admission Diagnosis/Problem Admission Diagnosis/Problem Source of Information: Patient History Limitations: Reports: No Limitations - History of Present Illness Introduction:: Patient is a 23 y/o at 39 3/7 wks who presents with SROM. Occurred just prior to mid-night. Some mild contractions since then. No other issues. 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: , Spontaneous : 2 Para: 0 LMP (Approximate): - Past Surgical History HEENT Surgical History: Reports: Oral Surgery Social & Family History - Family History Family Medical History: Noncontributory - Tobacco Use Smoking Status *Q: Never Smoker - Caffeine Use Caffeine Use: Reports: None - Alcohol Use Alcohol Use History: No - Recreational Drug Use Recreational Drug Use: No - Living Situation & Occupation Living situation: Reports: Occupation: Employed H&P Review of Systems - Review of Systems: Review Of Systems: See Below General: Reports: No Symptoms Pulmonary: Reports: No Symptoms Cardiovascular: Reports: No Symptoms Gastrointestinal: Reports: No Symptoms Genitourinary: Reports: No Symptoms Musculoskeletal: Reports: No Symptoms Psychiatric: Reports: No Symptoms Neurological: Reports: No Symptoms L&D Exam - Exam Exam: See Below - Vital Signs Weight: 112.491 kg - OB Specific Contraction Intensity: Irritability Movement: Active Heart Tones: Present Heart Tones per Min: 150 Heart Rate (FHR) Variability: Moderate (6-25 bmp) Presentation: Vertex - Exam General: Alert, Oriented, Cooperative Lungs: Clear to Auscultation, Normal Respiratory Effort Cardiovascular: Regular Rate, Regular Rhythm GI/Abdominal Exam: Soft, Non-Tender Genitourinary: Normal external exam Back Exam: Normal Inspection Extremities: Normal Inspection Skin: Warm, Dry, Intact - Patient Data Lab Results Last 24 hrs: Laboratory Results - last 24 hr 01/15/19 Range/Units 04:14 POC Glucose 98 (70-105) mg/dL Result Diagrams: 01/15/19 06:05 - Problem List (1) 39 weeks gestation of SNOMED Code(s): 78186531 ICD Code: Z3A.39 - 39 WEEKS GESTATION OF Status: Acute Current Visit: Yes (2) Gestational diabetes, diet controlled SNOMED Code(s): 73886114, 381009136, 164231015 ICD Code: O24.410 - GESTATIONAL DIABETES MELLITUS IN , DIET CONTROLLED Status: Acute Current Visit: Yes Qualifiers: Trimester: third trimester Qualified Code(s): O24.410 - Gestational diabetes mellitus in , diet controlled (3) Rh negative state in antepartum period SNOMED Code(s): 624758958 ICD Code: O26.899 - OTH RELATED CONDITIONS, UNSPECIFIED TRIMESTER; Z67.91 - UNSPECIFIED BLOOD TYPE, RH NEGATIVE Status: Acute Current Visit: Yes Problem List Initiated/Reviewed/Updated: Yes Orders Last 24hrs: Active Orders 24 hr Category Date Time Status Notify Provider [RC] ASDIRECTED Care 01/15/19 00:53 Active Oxygen Therapy [RC] ASDIRECTED Care 01/15/19 00:53 Active Pulse Oximetry [RC] ASDIRECTED Care 01/15/19 00:53 Active Bupivicaine/fentaNYL/NS [fentaNYL/Bupivacaine/NS 2 MCG- Med 01/15/19 00:53 Active 0.125% 250 ML] 0 ml EPIDUR CONTINUOUS PRN Ondansetron [Zofran] Med 01/15/19 00:53 Active 4 mg IVPUSH ONETIME PRN Phenylephrine [Andrea-Synephrine] 1 mg Med 01/15/19 01:00 Active Sodium Chloride 0.9% [Normal Saline] 10 ml IV TITRATE ePHEDrine [ePHEDrine sulfate] Med 01/15/19 00:53 Active 5 mg IVPUSH ASDIRECTED PRN fentaNYL [Sublimaze] Med 01/15/19 00:53 Active 100 mcg EPIDUR Q3H PRN Medication Orders Ephedrine Sulfate (Ephedrine Sulfate) 5 mg IVPUSH ASDIRECTED PRN PRN Reason: Hypotension Fentanyl (Sublimaze) 100 mcg EPIDUR Q3H PRN PRN Reason: Pain Fentanyl/Bupivacaine HCl (Fentanyl/Bupivacaine/Ns 2 Mcg-0.125% 250 Ml) 0 ml EPIDUR CONTINUOUS PRN PRN Reason: Pain Phenylephrine HCl 1 mg/ Sodium (Chloride) 10.1 mls @ 1 mls/sec IV TITRATE PAOLA; Protocol Ondansetron HCl (Zofran) 4 mg IVPUSH ONETIME PRN PRN Reason: Nausea/Vomiting Assessment/Plan Comment:: 23 y/o at 39 3/7 wks presents with SROM * Labs * GBS negative, no need for antibiotics * GODMA1 - blood sugars q4 hours prior to active labor * Pain management per patient preference * Anticipate * Rh negative, assess baby blood type following delivery
[2019-01-15] MEDS ORDERED: Oxytocin/Lactated Ringers 10 UNIT/1,000 ML BAG IV SCH ×2 (05:45→14:15)
[2019-01-15] MEDS: Lactated Ringers 1,000 ML IV SCH ×3 (08:51→19:53)
[2019-01-15] MEDS: Oxytocin/Lactated Ringers 10 UNIT/1,000 ML BAG IV SCH (08:57)
[2019-01-16] MEDS ORDERED: Bupivacaine 0.25% 10 ML SDV ONE
[2019-01-16] MEDS: Lactated Ringers 1,000 ML IV SCH (00:19)
[2019-01-16] MEDS: Oxytocin/Lactated Ringers 10 UNIT/1,000 ML BAG IV SCH (03:39)
--- NOTE | 2019-01-16 07:53 | PCM.DEL ---
L & D Note - General Info Date of Service: 01/16/19 - Delivery Note Labor: Augmented by Oxytocin Delivery Outcome: Livebirth Delivery Method: Spontaneous Vaginal Delivery-Single Delivery Mode: Spontaneous Presentation: Right Occiput Anterior (SUSAN) Nuchal Cord: Present (delivered quickly, not able to reduce ) Anesthesia Type: Epidural Amniotic Fluid Description: Clear Episiotomy Type: None Laceration: 2nd Degree, Perineal Suture type: Vicryl Suture size: 2-0 Placenta: Intact, Spontaneous Cord: 3 Vessels Estimated Blood Loss: 200 Resuscitation Needed: Yes : Bulb Syringe, Stimulated, Warmed, [place] Used, Warmer Used Score 1 min: 8 Score 5 min: 9 Delivery Comments (Free Text/Narrative):: Patient found to be complete and began pushing. With maternal pushing effort head delivered from an SUSAN presentation. Nuchal cord present, but baby delivered so quickly did not reduce. Shoulders and body delivered with slightly downward traction. Infant placed on maternal abdomen. Cord clamped and cut. Cord blood obtained. Placenta allowed time to separate and expelled intact. Inspection of the perineum showed a 2nd degree laceration which was repaired with a 2-0 vicryl in the typical fashion. - General Info Date of Service: 01/16/19 - Patient Data Vitals - Most Recent: Last Vital Signs Temp 36.8 C 01/15/19 01:00 Pulse 52 L 01/16/19 03:30 Resp 15 01/15/19 01:00 BP 140/84 01/15/19 19:01 Pulse Ox 97 01/15/19 00:51 Weight - Most Recent: 112.491 kg I&O - Last 24 Hours: Intake & Output 01/15/19 01/16/19 01/16/19 22:59 06:59 14:59 Intake Total 240 1000 Output Total 900 Balance 240 100 Lab Results Last 24 Hours: - Problem List & Annotations (1) 39 weeks gestation of SNOMED Code(s): 32965946 Code(s): Z3A.39 - 39 WEEKS GESTATION OF Status: Acute Current Visit: Yes (2) Gestational diabetes, diet controlled SNOMED Code(s): 82332076, 100002663, 171679154 Code(s): O24.410 - GESTATIONAL DIABETES MELLITUS IN , DIET CONTROLLED Status: Acute Current Visit: Yes Qualifiers: Trimester: third trimester Qualified Code(s): O24.410 - Gestational diabetes mellitus in , diet controlled (3) Rh negative state in antepartum period SNOMED Code(s): 483880068 Code(s): O26.899 - OTH RELATED CONDITIONS, UNSPECIFIED TRIMESTER; Z67.91 - UNSPECIFIED BLOOD TYPE, RH NEGATIVE Status: Acute Current Visit: Yes (4) Vaginal delivery SNOMED Code(s): 393288517 Code(s): O80 - ENCOUNTER FOR FULL-TERM UNCOMPLICATED DELIVERY Status: Acute Current Visit: Yes - Problem List Review Problem List Initiated/Reviewed/Updated: Yes - My Orders Last 24 Hours: My Active Orders 01/15/19 08:15 Oxytocin/Lactated Ringers [Pitocin in LR 10 Units/1,000 ML] 10 unit in 1,000 ml IV TITRATE 01/15/19 14:15 Oxytocin/Lactated Ringers [Pitocin in LR 10 Units/1,000 ML] 10 unit in 1,000 ml IV TITRATE 01/15/19 Breakfast Regular Diet [DIET] - Assessment Assessment:: 23 y/o G2 now P1011 PPD#0 from at 39 4/7 wks - Plan Plan:: * Routine cares * Breast feeding * GODMA1 - blood sugar in Am and then 2 hr GTT at 6 weeks * Rh negative, assess baby blood type * Discharge home in 2 days
[2019-01-16] MEDS ORDERED: Benzocaine/Menthol 20%-0.5% Spray 56 GM Canister TOP PRN (08:32)
[2019-01-16] MEDS ORDERED: Witch Hazel Medicated Pads 40/Jar TOP PRN (08:32)
[2019-01-16] MEDS ORDERED: Docusate Sodium 100 MG Cap PO PRN (08:32)
[2019-01-16] MEDS ORDERED: Acetaminophen 325 MG Tab PO PRN (08:32)
[2019-01-16] MEDS ORDERED: Ibuprofen 600 MG Tab PO PRN (08:32)
--- NOTE | 2019-01-17 07:01 | PCM.PNPP ---
- General Info Date of Service: 01/17/19 Functional Status: Reports: Pain Controlled - Review of Systems General: Reports: No Symptoms HEENT: Reports: No Symptoms Pulmonary: Reports: No Symptoms Cardiovascular: Reports: No Symptoms Gastrointestinal: Reports: No Symptoms Genitourinary: Reports: No Symptoms Musculoskeletal: Reports: No Symptoms Skin: Reports: No Symptoms Neurological: Reports: No Symptoms Psychiatric: Reports: No Symptoms - General Info Date of Service: 01/17/19 - Patient Data Vital Signs - Most Recent: Last Vital Signs Temp 36.6 C 01/17/19 04:31 Pulse 86 01/17/19 04:31 Resp 16 01/17/19 04:31 BP 115/60 01/17/19 04:31 Pulse Ox 99 01/17/19 04:31 Weight - Most Recent: 112.491 kg I&O - Last 24 Hours: Intake & Output 01/16/19 01/16/19 01/17/19 14:59 22:59 06:59 Intake Total 120 60 Balance 120 60 Lab Results - Last 24 Hours: Laboratory Results - last 24 hr 01/16/19 01/17/19 Range/Units 14:15 04:45 POC Glucose 91 (70-105) mg/dL Blood Type Cancelled Gel Antibody Screen Cancelled Screen 0 ros/5 flds - neg RhIG Candidate? Yes Rhogam Indicated Cancelled Med Orders - Current: Current Medications Acetaminophen (Tylenol) 650 mg PO Q4H PRN PRN Reason: mild pain or fever Benzocaine/Menthol (Dermoplast Pain Relief [place]) 0 gm TOP ASDIRECTED PRN PRN Reason: Perineal Comfort Measure Last Admin: 01/16/19 09:04 Dose: 1 applic Docusate Sodium (Colace) 100 mg PO BID PRN PRN Reason: Constipation Last Admin: 01/16/19 15:36 Dose: 100 mg Ibuprofen (Motrin) 600 mg PO Q6H PRN PRN Reason: Mild pain or fever Witch Seema (Tucks) 1 pad TOP ASDIRECTED PRN PRN Reason: Perineal Comfort Measure Last Admin: 01/16/19 09:04 Dose: 1 pad Discontinued Medications Bupivacaine HCl (Sensorcaine-Mpf 0.25%) 10 ml .ROUTE .STK-MED ONE Stop: 01/16/19 00:01 Ephedrine Sulfate (Ephedrine Sulfate) 5 mg IVPUSH ASDIRECTED PRN PRN Reason: Hypotension Fentanyl (Sublimaze) 100 mcg EPIDUR Q3H PRN PRN Reason: Pain Last Admin: 01/15/19 19:30 Dose: 100 mcg Fentanyl/Bupivacaine HCl (Fentanyl/Bupivacaine/Ns 2 Mcg-0.125% 250 Ml) 0 ml EPIDUR CONTINUOUS PRN PRN Reason: Pain Last Admin: 01/15/19 19:31 Dose: 250 ml Phenylephrine HCl 1 mg/ Sodium (Chloride) 10.1 mls @ 1 mls/sec IV TITRATE PAOLA; Protocol Lactated Ringer's (Ringers, Lactated) 1,000 mls @ 100 mls/hr IV ASDIRECTED PAOLA Last Admin: 01/16/19 00:19 Dose: 100 mls/hr Oxytocin/Lactated Ringer's (Pitocin In Lr 10 Units/1,000 Ml) 10 unit in 1,000 mls @ 500 mls/hr IV .CONTINUOUS POALA Oxytocin/Lactated Ringer's (Pitocin In Lr 10 Units/1,000 Ml) 10 unit in 1,000 mls @ 12 mls/hr IV TITRATE PAOLA; Protocol Last Titration: 01/16/19 04:19 Dose: 22 munits/min, 132 mls/hr Oxytocin/Lactated Ringer's (Pitocin In Lr 10 Units/1,000 Ml) 10 unit in 1,000 mls @ 6 mls/hr IV TITRATE PAOLA; Protocol Nalbuphine HCl (Nubain) 10 mg IVPUSH Q2H PRN PRN Reason: Pain Ondansetron HCl (Zofran) 4 mg IVPUSH ONETIME PRN PRN Reason: Nausea/Vomiting Last Admin: 01/16/19 00:22 Dose: 4 mg Sodium Chloride (Saline Flush) 10 ml FLUSH ASDIRECTED PRN PRN Reason: Keep Vein Open - Interaction Disposition, : [place] at Bedside Support Person: - Recovery Exam Fundal Tone: Firm Fundal Level: 1 Fingerbreadths Below Umbilicus Fundal Placement: Midline Lochia Amount: Small, Moderate Lochia Color: Rubra/Red Perineum Description: Intact, Minimal Bruising/Swelling Episiotomy/Laceration: Approximated Bladder Status: Voiding Urinary Elimination: Voided - Exam General: Alert, Oriented HEENT: Pupils Equal Neck: Supple Lungs: Clear to Auscultation, Normal Respiratory Effort Cardiovascular: Regular Rate, Regular Rhythm GI/Abdominal Exam: Normal Bowel Sounds, Soft, Non-Tender, No Organomegaly, No Distention, No Abnormal Bruit, No Mass, Pelvis Stable Extremities: Normal Inspection, Normal Range of Motion, Non-Tender, No Pedal Edema, Normal Capillary Refill Skin: Warm Neurological: No New Focal Deficit Psy/Mental Status: Alert, Normal Affect, Normal Mood - Problem List Review Problem List Initiated/Reviewed/Updated: Yes - My Orders Last 24 Hours: 23 year old day 1 Doing great Probably home tomorrow. - Assessment Assessment:: 23 y/o G2 now P1011 PPD#0 from at 39 4/7 wks - Plan Plan:: * Routine cares * [facility] blood sugar in Am and then 2 hr GTT at 6 weeks * Rh negative, assess baby blood type * Discharge home in 2 days
--- NOTE | 2019-01-18 07:18 | PCM.DCSUM1 ---
Discharge Summary - Hospital Course Diagnosis: Stroke: No - Discharge Data Discharge Date: 01/18/19 Discharge Disposition: Home, Self-Care 01 Condition: Good - Referral to Home Health Primary Care Physician: Tenisha Willoughby MD - Patient Instructions Diet: Usual Diet as Tolerated Activity: No Strenuous Activities Driving: May Drive Today Showering/Bathing: May Shower Notify Provider of: Fever, Increased Pain, Swelling and Redness, Drainage, Nausea and/or Vomiting - Discharge Plan *PRESCRIPTION DRUG MONITORING PROGRAM REVIEWED*: No *COPY OF PRESCRIPTION DRUG MONITORING REPORT IN PATIENT [place]: No Home Medications: Home Meds Bisacodyl [Dulcolax] 100 mg PO DAILY 05/18/18 [History] PNV95/Ferrous Fumarate/FA [ Tablet] 1 tab PO DAILY 05/18/18 [History] Referrals: Tenisha Willoughby MD [Primary Care Provider] - (2 weeks) - Discharge Summary/Plan Comment DC Time >30 min.: No - General Info Date of Service: 01/18/19 Functional Status: Reports: Pain Controlled - Review of Systems General: Reports: No Symptoms HEENT: Reports: No Symptoms Pulmonary: Reports: No Symptoms Cardiovascular: Reports: No Symptoms Gastrointestinal: Reports: No Symptoms Genitourinary: Reports: No Symptoms Musculoskeletal: Reports: No Symptoms Skin: Reports: No Symptoms Neurological: Reports: No Symptoms Psychiatric: Reports: No Symptoms - Patient Data Vitals - Most Recent: Last Vital Signs Temp 36.6 C 01/18/19 04:24 Pulse 81 01/18/19 04:24 Resp 15 01/18/19 04:24 BP 117/76 01/18/19 04:24 Pulse Ox 96 01/18/19 04:24 Weight - Most Recent: 112.491 kg I&O - Last 24 hours: Intake & Output 01/17/19 01/18/19 01/18/19 22:59 06:59 14:59 Intake Total 240 Balance 240 Med Orders - Current: Current Medications Acetaminophen (Tylenol) 650 mg PO Q4H PRN PRN Reason: mild pain or fever Benzocaine/Menthol (Dermoplast Pain Relief [place]) 0 gm TOP ASDIRECTED PRN PRN Reason: Perineal Comfort Measure Last Admin: 01/16/19 09:04 Dose: 1 applic Docusate Sodium (Colace) 100 mg PO BID PRN PRN Reason: Constipation Last Admin: 01/16/19 15:36 Dose: 100 mg Ibuprofen (Motrin) 600 mg PO Q6H PRN PRN Reason: Mild pain or fever [place]ha Stephenson ([place]) 1 pad TOP ASDIRECTED PRN PRN Reason: Perineal Comfort Measure Last Admin: 01/16/19 09:04 Dose: 1 pad Discontinued Medications Bupivacaine HCl (Sensorcaine-Mpf 0.25%) 10 ml .ROUTE .K-MED ONE Stop: 01/16/19 00:01 Ephedrine Sulfate (Ephedrine Sulfate) 5 mg IVPUSH ASDIRECTED PRN PRN Reason: Hypotension Fentanyl (Sublimaze) 100 mcg EPIDUR Q3H PRN PRN Reason: Pain Last Admin: 01/15/19 19:30 Dose: 100 mcg Fentanyl/Bupivacaine HCl (Fentanyl/Bupivacaine/Ns 2 Mcg-0.125% 250 Ml) 0 ml EPIDUR CONTINUOUS PRN PRN Reason: Pain Last Admin: 01/15/19 19:31 Dose: 250 ml Phenylephrine HCl 1 mg/ Sodium (Chloride) 10.1 mls @ 1 mls/sec IV TITRATE PAOLA; Protocol Lactated Ringer's (Ringers, Lactated) 1,000 mls @ 100 mls/hr IV ASDIRECTED PAOLA Last Admin: 01/16/19 00:19 Dose: 100 mls/hr Oxytocin/Lactated Ringer's (Pitocin In Lr 10 Units/1,000 Ml) 10 unit in 1,000 mls @ 500 mls/hr IV .CONTINUOUS PAOLA Oxytocin/Lactated Ringer's (Pitocin In Lr 10 Units/1,000 Ml) 10 unit in 1,000 mls @ 12 mls/hr IV TITRATE PAOLA; Protocol Last Titration: 01/16/19 04:19 Dose: 22 munits/min, 132 mls/hr Oxytocin/Lactated Ringer's (Pitocin In Lr 10 Units/1,000 Ml) 10 unit in 1,000 mls @ 6 mls/hr IV TITRATE PAOLA; Protocol Nalbuphine HCl (Nubain) 10 mg IVPUSH Q2H PRN PRN Reason: Pain Ondansetron HCl (Zofran) 4 mg IVPUSH ONETIME PRN PRN Reason: Nausea/Vomiting Last Admin: 01/16/19 00:22 Dose: 4 mg Sodium Chloride (Saline Flush) 10 ml FLUSH ASDIRECTED PRN PRN Reason: Keep Vein Open - Exam General: Reports: Alert, Oriented HEENT: Reports: Pupils Equal, Pupils Reactive, EOMI, Mucous Membr. Moist/[place] Neck: Reports: Supple Lungs: Reports: Clear to Auscultation, Normal Respiratory Effort Cardiovascular: Reports: Regular Rate, Regular Rhythm GI/Abdominal Exam: Normal Bowel Sounds, Soft, Non-Tender, No Organomegaly, No Distention, No Abnormal Bruit, No Mass, Pelvis Stable Rectal (Female) Exam: Normal Exam, Normal Rectal Tone Back Exam: Reports: Normal Inspection, Full Range of Motion Extremities: Normal Inspection, Normal Range of Motion, Non-Tender, No Pedal Edema, Normal Capillary Refill Skin: Reports: Warm, Dry, Intact Wound/Incisions: Reports: Healing Well Neurological: Reports: No New Focal Deficit Psy/Mental Status: Reports: Alert, Normal Affect, Normal Mood
[2019-01-18 12:38] VITALS: BP 119/73; PULSE 84
--- NOTE | 2019-01-19 08:13 | PCM48HPAN ---
Post Anesthesia Note - EVALUATION WITHIN 48HRS OF ANESTHETIC Vital Signs in Normal Range: Yes Patient Participated in Evaluation: No (disscuss with RN) Respiratory Function Stable: Yes Airway Patent: Yes Cardiovascular Function Stable: Yes Hydration Status Stable: Yes Pain Control Satisfactory: Yes Nausea and Vomiting Control Satisfactory: Yes Mental Status Recovered: Yes Vital Signs: Last Vital Signs Temp 36.8 C 01/18/19 09:08 Pulse 84 01/18/19 09:08 Resp 14 01/18/19 09:08 BP 119/73 01/18/19 09:08 Pulse Ox 97 01/18/19 09:08 - COMMENTS/OBSERVATIONS Free Text/Narrative:: no anesthesia complications noted
== END 2019-01-18 10:10 | disposition home or self-care (01) | DRG 560 ==
LOC: JD.OBCHECK 23:59 → JD.OB 01-15 00:37 → JD.OBCHECK 01-15 05:32 → JD.OB 01-15 05:32 → OBSVTOIN 01-16 07:18 → JD.OB 01-16 11:45
PROVIDERS: ADMIT Obstetrics & Gynecology; ATTEND Obstetrics & Gynecology
PROC: 10E0XZZ Delivery of Products of Conception, External Approach (ICD-10-PCS; principal; 2019-01-16)
DX: O24.420 Gestational diabetes mellitus in childbirth, diet controlled (principal); Z3A.39 39 weeks gestation of pregnancy; Z37.0 Single live birth; O70.1 Second degree perineal laceration during delivery; O69.81X0 Labor and delivery complicated by cord around neck, without compression, not applicable or unspecified; O26.893 Other specified pregnancy related conditions, third trimester; Z67.31 Type AB blood, Rh negative
CPT/HCPCS: 01967; 36415; 51702; 59025; 59409; 82962; 85025; 85461; 86592; 86850; 86900; 86901; A9270-GY; J2405; J2590; J2790; J3010; J3490; J7120

== ENCOUNTER 2020-01-14 19:32 | Emergency (ER) | payer SELFPAY ==
[2020-01-14 19:44] VITALS: BP 139/86; PULSE 94
[2020-01-14] MEDS ORDERED: Ketorolac 60 MG/2 ML SDV IM ONE (20:09)
--- NOTE | 2020-01-14 20:45 | EDM.PDOC ---
ED HPI GENERAL MEDICAL PROBLEM - General Chief Complaint: Genitourinary Problem Stated Complaint: KIDNEY PAIN CT TODAY POSSIBLE STONE Time Seen by Provider: 01/14/20 19:38 Source of Information: Reports: Patient History Limitations: Reports: No Limitations - History of Present Illness INITIAL COMMENTS - FREE TEXT/NARRATIVE: Patient is a 24-year-old female presenting to the emergency department with complaints of low back pain which is present on the right and the left, but more severe on the right side. She also complained of urinary frequency but denies any dysuria. She was seen at the walk-in clinic at [place] yesterday. Urinalysis was completed that time and found to be normal. States she had a CT scan completed of her abdomen and pelvis today as there was concern for kidney stones. She has a report of this available on her phone. Results of the report show no ureteral calculi. She does have a 6.2 cm cyst on her right kidney. Urinalysis results show no blood in her urine, she is nitrite negative and leukocyte Estrace negative. She denies any fever or chills. She is had no nausea or vomiting. Pain is worse with lifting, bending, or movement. 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: NSAIDS Right Flank Pain Score (Numeric/FACES): 8 - Related Data Allergies Allergy/AdvReac Type Severity Reaction Status Date / Time No Known Allergies Allergy Verified 01/14/20 19:44 Home Meds: Home Meds Naproxen [Naprosyn] 500 mg PO Q12HR 5 Days #10 tab 01/14/20 [Rx] Past Medical History - Past Health History Medical/Surgical History: Denies Medical/Surgical History HEENT History: Reports: None Cardiovascular History: Reports: None Respiratory History: Reports: None Gastrointestinal History: Reports: None Genitourinary History: Reports: None [employer] PROFESSIONAL History: Reports: , Spontaneous Musculoskeletal History: Reports: Fracture Other Musculoskeletal History: tibula Neurological History: Reports: None Psychiatric History: Reports: ADHD, Developmental Delay Endocrine/Metabolic History: Reports: Diabetes, Gestational Hematologic History: Reports: None Immunologic History: Reports: None Oncologic (Cancer) History: Reports: None Dermatologic History: Reports: None - Infectious Disease History Infectious Disease History: Reports: None - Past Surgical History HEENT Surgical History: Reports: Oral Surgery Cardiovascular Surgical History: Reports: None Respiratory Surgical History: Reports: None GI Surgical History: Reports: None Female Surgical History: Reports: None Neurological Surgical History: Reports: None Oncologic Surgical History: Reports: None Dermatological Surgical History: Reports: None Social & Family History - Family History Family Medical History: Noncontributory - Tobacco Use Tobacco Use Status *Q: Never Tobacco User - Caffeine Use Caffeine Use: Reports: Coffee Other Caffeine Use: daily - Recreational Drug Use Recreational Drug Use: No - Living Situation & Occupation Living situation: Reports: Occupation: Employed ED ROS GENERAL - Review of Systems Review Of Systems: See Below Constitutional: Reports: No Symptoms. Denies: Fever, Chills, Weakness HEENT: Reports: No Symptoms Respiratory: Reports: No Symptoms Cardiovascular: Reports: No Symptoms Endocrine: Reports: No Symptoms GI/Abdominal: Reports: No Symptoms : Reports: Frequency. Denies: Dysuria, Hematuria Musculoskeletal: Reports: Back Pain (bilateral low back, right worse than left.) Skin: Reports: No Symptoms Neurological: Reports: No Symptoms Psychiatric: Reports: No Symptoms Hematologic/Lymphatic: Reports: No Symptoms Immunologic: Reports: No Symptoms ED EXAM, GENERAL - Physical Exam Exam: See Below Exam Limited By: No Limitations General Appearance: Alert, WD/WN, No Apparent Distress Respiratory/Chest: No Respiratory Distress, Lungs Clear, Normal Breath Sounds, No Accessory Muscle Use, Chest Non-Tender Cardiovascular: Normal Peripheral Pulses, Regular Rate, Rhythm, No Edema, No Gallop, No JVD, No Murmur, No Rub GI/Abdominal: Normal Bowel Sounds, Soft, Non-Tender, No Organomegaly, No Distention, No Abnormal Bruit, No Mass Back Exam: Normal Inspection, Paraspinal Tenderness (bilateral to T12 - L5), Vertebral Tenderness (T12 - L5), Other (tenderness over the rt SI joint) Neurological: Alert, Oriented, CN II-XII Intact, Normal Cognition, Normal Gait, Normal Reflexes, No Motor/Sensory Deficits Psychiatric: Normal Affect, Normal Mood Skin Exam: Warm, Dry, Intact, Normal Color, No Rash Course - Vital Signs Last Recorded V/S: Last Vital Signs Temp 97.8 F 01/14/20 19:38 Pulse 94 01/14/20 19:38 Resp 14 01/14/20 19:38 BP 139/86 01/14/20 19:38 Pulse Ox 95 01/14/20 19:38 - Orders/Labs/Meds Meds: Medications Discontinued Medications Generic Name Dose Route Start Last Admin Trade Name Aneta PRN Reason Stop Dose Admin Ketorolac Tromethamine 60 mg 01/14/20 20:09 01/14/20 20:17 Toradol IM 01/14/20 20:10 60 mg ONETIME ONE Administration - Re-Assessments/Exams Free Text/Narrative Re-Assessment/Exam: Patient is a 24-year-old female presenting to the emergency department with complaints of low back pain. Symptoms began on Saturday of this week. She denies any known injury to her low back. She is also had some frequency of urination but denies any dysuria or hematuria. CT scan report was shown to me by the patient. Was negative for any ureteral calculi. She does have a 6.2 cm cyst on her right kidney which is possibly hemorrhagic. Urinalysis was found to be negative for blood, nitrites, or leukocyte esterase. Patient's examination is consistent with musculoskeletal back pain. She is tender over the T12-L5 vertebrae as well as the bilateral paraspinous muscles at this level. She also has tenderness over the SI joint on the right side. Low is possible that her cyst could be causing pain, the pain she describes not localized to the area of the kidneys. Discussed further work-up including blood work and/or imaging, but patient declined at this time. She will follow-up with her primary care provider tomorrow. We will treat her with an injection of Toradol for pain. She would like to wait and see if this improves her pain. 01/14/20 20:51 Patient's pain has improved with Toradol injection. I will send a 5 day prescription for Naprosyn. Recommend she call to follow-up with her primary care provider, Bernarda Smith tomorrow, to further review the results of the CT scan completed in the clinic today, and for follow-up testing as needed. She may also see her chiropractor to adjust her low back. Discharge instructions as documented. Departure - Departure Time of Disposition: 20:55 Disposition: Home, Self-Care 01 Condition: Good Clinical Impression: Back pain Qualifiers: Back pain location: low back pain Chronicity: acute Back pain laterality: bilateral Sciatica presence: without sciatica Qualified Code(s): M54.5 - Low back pain - Discharge Information *PRESCRIPTION DRUG MONITORING PROGRAM REVIEWED*: No *COPY OF PRESCRIPTION DRUG MONITORING REPORT IN PATIENT [place]: No Prescriptions: Naproxen [Naprosyn] 500 mg PO Q12HR 5 Days #10 tab Instructions: Acute Back Pain, Adult Referrals: Bernarda Smith PA-C [Primary Care Provider] - Additional Instructions: You were seen in the emergency department today for low back pain. Review of your CT report from [facility] and the urinalysis from [place] showed that your your do not have a kidney stone, nor do you have a urinalysis. You do have a cyst on your right kidney. Your exam findings were consistent with musculoskeletal back pain. In the ER, you received an injection of Toradol which did improve your pain. A prescription for Naprosyn has been sent to [facility]. Take this as prescribed starting tomorrow. You may also apply heat to the area intermittently. It may be beneficial to see your chiropractor as well. Recommend you call your primary care provider tomorrow to follow-up on your CT scan results and for further testing as needed. Return to the ER for any new or worsening symptoms of concern. Sepsis Event Note (ED) - Evaluation Sepsis Screening Result: No Definite Risk - Focused Exam Vital Signs: Vital Signs Temp Pulse Resp BP Pulse Ox 01/14/20 19:38 97.8 F 94 14 139/86 95
== END 2020-01-14 21:17 | disposition home or self-care (01) ==
LOC: JD.ED 19:32
DX: M54.5 Low back pain (principal)
CPT/HCPCS: 96372; 99283; J1885

== ENCOUNTER 2020-08-30 20:44 | Emergency (ER) | payer BC ==
[2020-08-30 20:58] VITALS: BP 135/89; PULSE 82
[2020-08-30] MEDS ORDERED: Ketorolac 60 MG/2 ML SDV IM ONE (21:11)
--- NOTE | 2020-08-30 21:19 | EDM.PDOC ---
ED HPI GENERAL MEDICAL PROBLEM - General Chief Complaint: Back Pain or Injury Stated Complaint: lower back pain Time Seen by Provider: 08/30/20 20:57 Source of Information: Reports: Patient, RN Notes Reviewed History Limitations: Reports: No Limitations - History of Present Illness INITIAL COMMENTS - FREE TEXT/NARRATIVE: Patient is a 24-year-old female who presents to the ER for the evaluation of her lower back pain. States that this has been present for roughly 1 week now, she went to the walk-in clinic, was examined was given a prescription for Flexeril, and sent home. States that she took 1 dose of Flexeril, although it made her relaxed, also made her sleepy and she has young children at home, so she did not take any more of this. Patient states that she typically has to carry her children, and is moving about the house with multiple young children throughout the day. Has been using ibuprofen, 600 mg at least 3 times a day for pain management but states nothing really seems to be helping much. She points to the area of her back, that appear to be near the SI joints. She denies any dysuria, frequency or urgency, fever/chills, cough/shortness breath, naus ea/vomiting/diarrhea. States no trauma to have aggravated anything. She has not had issues with back pain in the past. Patient has become concerned because she is to go on vacation soon on a long car ride, and is scared that she might still be hurting, so this may hinder the vacation. Bilateral Lower Back Pain Score (Numeric/FACES): 7 - Related Data Allergies Allergy/AdvReac Type Severity Reaction Status Date / Time No Known Allergies Allergy Verified 08/30/20 20:58 Home Meds: Home Meds Ibuprofen [Ibu] 600 mg PO TID 08/30/20 [History] Orphenadrine [Norflex] 100 mg PO BID PRN #20 tab 08/30/20 [Rx] predniSONE 20 mg PO ASDIRECTED #10 tab 08/30/20 [Rx] Past Medical History [employer] History: Reports: , Spontaneous Musculoskeletal History: Reports: Fracture Psychiatric History: Reports: ADHD, Developmental Delay Endocrine/Metabolic History: Reports: Diabetes, Gestational - Infectious Disease History Infectious Disease History: Reports: Novel Coronavirus - Past Surgical History HEENT Surgical History: Reports: Oral Surgery Other HEENT Surgeries/Procedures: wisdom teeth Social & Family History - Family History Family Medical History: No Pertinent Family History - Tobacco Use Tobacco Use Status *Q: Never Tobacco User Second Hand Smoke Exposure: No - Caffeine Use Caffeine Use: Reports: Coffee Other Caffeine Use: daily - Recreational Drug Use Recreational Drug Use: No - Living Situation & Occupation Living situation: Reports: Occupation: Employed ED ROS GENERAL - Review of Systems Review Of Systems: Comprehensive ROS is negative, except as noted in HPI. ED EXAM,LOWER BACK PAIN/INJURY - Physical Exam Exam: See Below Exam Limited By: No Limitations General Appearance: Alert, WD/WN, No Apparent Distress Respiratory/Chest: No Respiratory Distress, Lungs Clear, Normal Breath Sounds, No Accessory Muscle Use, Chest Non-Tender Cardiovascular: Normal Peripheral Pulses, Regular Rate, Rhythm, No Edema Extremities: Normal Inspection, Normal Capillary Refill Neurological: Alert, Normal Mood/Affect, Normal Dorsiflexion, Normal Plantar Flexion, Normal Gait, No Motor/Sensory Deficits, Oriented x 3, Straight Leg Raise (L). No: Straight Leg Raise (R), Saddle Anesthesia Psychiatric: Normal Affect, Normal Mood Skin Exam: Warm, Dry, Intact, Normal Color, No Rash Course - Vital Signs Last Recorded V/S: Last Vital Signs Temp 98.4 F 08/30/20 20:52 Pulse 82 08/30/20 20:52 Resp 20 08/30/20 20:52 BP 135/89 08/30/20 20:52 Pulse Ox 98 08/30/20 20:52 - Orders/Labs/Meds Meds: Medications Discontinued Medications Generic Name Dose Route Start Last Admin Trade Name Freq PRN Reason Stop Dose Admin Ketorolac Tromethamine 60 mg 08/30/20 21:11 Ketorolac 60 Mg/2 Ml Sdv IM 08/30/20 21:12 ONETIME ONE - Re-Assessments/Exams Free Text/Narrative Re-Assessment/Exam: 08/30/20 21:18 Patient presents to the ER for the evaluation of her low back pain, we will go ahead and get her IM Toradol for initial pain management, plan is to send her home with a burst of prednisone, and change her to Norflex from Flexeril, patient verbalized understanding of this plan. I do believe that the patient is having SI joint issues. Departure - Departure Time of Disposition: 21:19 Disposition: Home, Self-Care 01 Condition: Good Clinical Impression: SI (sacroiliac) joint inflammation, Muscle spasm of back - Discharge Information *PRESCRIPTION DRUG MONITORING PROGRAM REVIEWED*: No *COPY OF PRESCRIPTION DRUG MONITORING REPORT IN PATIENT [place]: No Prescriptions: Orphenadrine [Norflex] 100 mg PO BID PRN #20 tab PRN Reason: Spasms predniSONE 20 mg PO ASDIRECTED #10 tab Instructions: Muscle Cramps and Spasms, [id number], Back Injury Prevention, [id number] Referrals: PCP,None [Primary Care Provider] - Additional Instructions: You were evaluated in the ER today regarding your ongoing back pain. Your pain is thought likely due to SI joint dysfunction at this time. You were given a injection of an anti-inflammatory in the ER called Toradol, this seemed to work well for you. You have been started on 2 prescriptions, one will be prednisone, 1 tablet 2 times a day for 5 days, the other is for Norflex, a muscle relaxer, 1 tablet 2 times a day as needed for muscle spasms. This medication was electronically sent to the [place] pharmacy located in the [facility] grocery store. Please use heating pad to the area, try to get into the chiropractor as well to see if this does not help relieve some of your pain. You may try [id number] analgesia patches like Salonpas, or any pain relieving patch with lidocaine, as this might also provide benefit. Please return to the ER at any time however if your symptoms change or worsen. Sepsis Event Note (ED) - Evaluation Sepsis Screening Result: No Definite Risk - Focused Exam Vital Signs: Vital Signs Temp Pulse Resp BP Pulse Ox 08/30/20 20:52 98.4 F 82 20 135/89 98
== END 2020-08-30 21:45 | disposition home or self-care (01) ==
LOC: JD.ED 20:44
DX: M62.830 Muscle spasm of back (principal); M46.1 Sacroiliitis, not elsewhere classified
CPT/HCPCS: 96372; 99283; J1885

== ENCOUNTER 2021-04-23 22:58 | Emergency (ER) | payer BC ==
[2021-04-23] MEDS ORDERED: Acetaminophen 325 MG Tab PO ONE (23:36)
[2021-04-24 01:32] VITALS: BP 112/62; PULSE 74
== END 2021-04-24 03:30 | disposition home or self-care (01) ==
LOC: JD.ED 22:58
DX: O9A.23 Injury, poisoning and certain other consequences of external causes complicating the puerperium (principal); S06.0X0A Concussion without loss of consciousness, initial encounter; Z3A.29 29 weeks gestation of pregnancy; W01.0XXA Fall on same level from slipping, tripping and stumbling without subsequent striking against object, initial encounter; Y92.002 Bathroom of unspecified non-institutional (private) residence as the place of occurrence of the external cause
CPT/HCPCS: 99283; A9270-GY

== ENCOUNTER 2021-07-16 16:44 | Inpatient (IN) | payer BC ==
[2021-07-16] MEDS ORDERED: Oxytocin/Lactated Ringers 10 UNIT/1,000 ML BAG IV SCH (17:15)
[2021-07-16] MEDS ORDERED: Sodium Chloride 0.9% 10 ML Syringe FLUSH PRN (17:15)
[2021-07-16] MEDS: Lactated Ringers 1,000 ML IV SCH (17:40)
[2021-07-17] MEDS ORDERED: Lidocaine 2% with EPINEPHrine 1:200,000 20 ML SDV ONE
[2021-07-17] MEDS ORDERED: ePHEDrine 50 MG/ML SDV ONE
[2021-07-17] MEDS ORDERED: Bupivacaine 0.25% 10 ML SDV ONE ×2
[2021-07-17] MEDS ORDERED: Phenylephrine/Normal Saline 100 MCG/ML 10 ML Syringe ONE
[2021-07-17] MEDS: Lactated Ringers 1,000 ML IV SCH ×3 (07:15→15:52)
[2021-07-17] MEDS ORDERED: Bupivacaine/fentaNYL/NS 100 ML Bag EPIDUR PRN (08:00)
[2021-07-17] MEDS ORDERED: ePHEDrine 50 MG/ML SDV IVPUSH PRN (08:00)
[2021-07-17] MEDS ORDERED: fentaNYL 100 MCG/2 ML SDV EPIDUR PRN (08:00)
[2021-07-17] MEDS ORDERED: diphenhydrAMINE 50 MG/ML SDV IVPUSH PRN (08:00)
[2021-07-17] MEDS ORDERED: Oxytocin/Lactated Ringers 20 UNIT/1,000 ML BAG IV SCH (10:00)
[2021-07-17] MEDS ORDERED: Ondansetron 4 MG/2 ML SDV IVPUSH PRN (15:29)
[2021-07-17] MEDS ORDERED: Ondansetron 4 MG/2 ML SDV ONE ×2 (15:33→22:31)
[2021-07-17] MEDS ORDERED: Citric Acid/Sodium Citrate Solution 30 ML Cup PO ONE (22:17)
[2021-07-17] MEDS ORDERED: ceFAZolin 2 GM in Sodium Chloride 0.9% 50 ML IV ONE (22:17)
[2021-07-17] MEDS ORDERED: Metoclopramide 10 MG/2 ML SDV IVPUSH ONE (22:17)
[2021-07-17] MEDS ORDERED: Azithromycin 500 MG in Sodium Chloride 0.9% 250 ML IV ONE (22:18)
[2021-07-17] MEDS ORDERED: Citric Acid/Sodium Citrate Solution 30 ML Cup ONE (22:18)
[2021-07-17] MEDS ORDERED: Metoclopramide 10 MG/2 ML SDV ONE (22:18)
[2021-07-17] MEDS ORDERED: Oxytocin 10 Units/1 ML SDV ONE (22:31)
[2021-07-17] MEDS ORDERED: ceFAZolin 1 GM Vial ONE (22:53)
[2021-07-17] MEDS ORDERED: Methylergonovine 0.2 MG/1 ML Amp ONE (23:00)
[2021-07-17] MEDS ORDERED: Misoprostol 200 MCG Tab ONE (23:00)
[2021-07-17] MEDS ORDERED: Morphine PF 10 MG/10 ML SDV ONE (23:01)
[2021-07-17] MEDS ORDERED: Carboprost Tromethamine 250 MCG/1 ML Amp ONE (23:14)
[2021-07-17] MEDS ORDERED: Lidocaine 1% 2 ML ONE (23:18)
[2021-07-17] MEDS ORDERED: Dexamethasone 4 MG/ML SDV ONE (23:45)
[2021-07-18] MEDS ORDERED: Lactated Ringers 1,000 ML ONE ×2 (00:03→00:04)
[2021-07-18] MEDS ORDERED: Oxytocin 10 Units/1 ML SDV ONE (00:03)
[2021-07-18] MEDS ORDERED: diphenhydrAMINE 50 MG/ML SDV IVPUSH PRN ×2 (00:07→01:10)
[2021-07-18] MEDS ORDERED: fentaNYL 100 MCG/2 ML SDV IVPUSH PRN (00:07)
[2021-07-18] MEDS ORDERED: Ondansetron 4 MG/2 ML SDV IVPUSH PRN (00:07)
[2021-07-18] MEDS ORDERED: Docusate Sodium 100 MG Cap PO PRN (01:10)
[2021-07-18] MEDS ORDERED: Naloxone 0.4 MG/ML SDV IVPUSH PRN (01:10)
[2021-07-18] MEDS ORDERED: Dextrose 5%-Lactated Ringers 1,000 ML IV SCH (01:10)
[2021-07-18] MEDS ORDERED: Ondansetron 4 MG/2 ML SDV IV PRN (01:10)
[2021-07-18] MEDS ORDERED: Acetaminophen/oxyCODONE 325-5 MG Tab PO PRN (01:10)
[2021-07-18] MEDS: Sodium Chloride 0.9% 10 ML Syringe FLUSH SCH (02:49)
[2021-07-18] MEDS: Ketorolac 30 MG/ML SDV IVPUSH SCH ×3 (05:11→17:37)
[2021-07-18] MEDS: Acetaminophen/oxyCODONE 325-5 MG Tab PO PRN (20:00)
[2021-07-19] MEDS: Acetaminophen/oxyCODONE 325-5 MG Tab PO PRN (02:01)
[2021-07-19] MEDS ORDERED: Ibuprofen 600 MG Tab PO PRN (06:24)
[2021-07-19 10:52] VITALS: BP 126/61; PULSE 104
== END 2021-07-19 09:40 | disposition home or self-care (01) | DRG 540 ==
LOC: JD.OB 16:44 → OBSVTOIN 07-17 23:05 → JD.OB 07-17 23:06
PROVIDERS: ADMIT Obstetrics & Gynecology; ATTEND Obstetrics & Gynecology
PROC: 10D00Z1 Extraction of Products of Conception, Low, Open Approach (ICD-10-PCS; principal; 2021-07-17)
PROC: 10907ZC Drainage of Amniotic Fluid, Therapeutic from Products of Conception, Via Natural or Artificial Opening (ICD-10-PCS; 2021-07-17)
PROC: 3E033VJ Introduction of Other Hormone into Peripheral Vein, Percutaneous Approach (ICD-10-PCS; 2021-07-17)
PROC: 4A1HXCZ Monitoring of Products of Conception, Cardiac Rate, External Approach (ICD-10-PCS; 2021-07-17)
DX: O48.0 Post-term pregnancy (principal); Z3A.41 41 weeks gestation of pregnancy; Z37.0 Single live birth; O99.214 Obesity complicating childbirth; Z86.32 Personal history of gestational diabetes; Z67.91 Unspecified blood type, Rh negative; O62.1 Secondary uterine inertia; O72.1 Other immediate postpartum hemorrhage
CPT/HCPCS: 01967; 01968; 36415; 51702; 59025; 85027; 86592; 94762; A9270-GY; J0456; J0690; J1100; J1885; J2210; J2274; J2370; J2405; J2590; J2765; J3010; J3490; J7050; J7120; J7121

== ENCOUNTER 2021-11-13 18:40 | Emergency (ER) | payer BC ==
[2021-11-13 19:40] VITALS: BP 138/74; PULSE 71
[2021-11-13] MEDS ORDERED: Ketorolac 30 MG/ML SDV IVPUSH ONE (21:14)
[2021-11-13] MEDS ORDERED: Sodium Chloride 0.9% 10 ML Syringe FLUSH PRN (21:14)
[2021-11-13] MEDS ORDERED: Ketorolac 60 MG/2 ML SDV IM ONE (21:25)
[2021-11-13 22:06] LABS: ESTIMATED GFR 90 mL/min (>60)
[2021-11-13] MEDS ORDERED: predniSONE 20 MG Tab PO ONE (22:19)
== END 2021-11-13 22:34 | disposition home or self-care (01) ==
LOC: JD.ED 18:40
DX: R07.89 Other chest pain (principal); Z79.899 Other long term (current) drug therapy; Z86.16 Personal history of COVID-19
CPT/HCPCS: 36415; 71046; 80053; 84484; 85025; 85379; 86140; 93005; 96372; 99285; J1885; J7512

== ENCOUNTER 2022-01-28 21:39 | Emergency (ER) | payer BC ==
[2022-01-28 21:56] VITALS: BP 122/79; PULSE 102
[2022-01-28 22:54] LABS: ESTIMATED GFR 71 mL/min (>60)
== END 2022-01-29 00:56 | disposition home or self-care (01) ==
LOC: JD.ED 21:39
DX: R42 Dizziness and giddiness (principal); E05.90 Thyrotoxicosis, unspecified without thyrotoxic crisis or storm; M25.471 Effusion, right ankle; Z86.16 Personal history of COVID-19
CPT/HCPCS: 36415; 70450; 70450-26; 73610-26-RT; 73610-RT; 80053; 83735; 84439; 84443; 84484; 85025; 93005; 99284

== ENCOUNTER 2022-05-26 19:01 | Emergency (ER) | payer BC ==
[2022-05-26 19:21] VITALS: BP 131/76; PULSE 83
[2022-05-26] MEDS ORDERED: Acetaminophen/HYDROcodone 325-5 MG Tab PO ONE (19:45)
== END 2022-05-26 22:33 | disposition home or self-care (01) ==
LOC: JD.ED 19:01
DX: S39.012A Strain of muscle, fascia and tendon of lower back, initial encounter (principal); S56.912A Strain of unspecified muscles, fascia and tendons at forearm level, left arm, initial encounter; Z86.16 Personal history of COVID-19; W00.0XXA Fall on same level due to ice and snow, initial encounter; Y92.009 Unspecified place in unspecified non-institutional (private) residence as the place of occurrence of the external cause
CPT/HCPCS: 72131; 73090; 73110; 99284; A9270

== ENCOUNTER 2022-07-20 22:18 | Emergency (ER) | payer BC ==
[2022-07-20] MEDS ORDERED: Ondansetron 4 MG/2 ML SDV IVPUSH ONE (22:45)
[2022-07-20] MEDS ORDERED: Sodium Chloride 0.9% 1,000 ML IV SCH ×3 (22:45→23:30)
[2022-07-20] MEDS ORDERED: Sodium Chloride 0.9% 10 ML Syringe FLUSH PRN (22:45)
[2022-07-20] MEDS ORDERED: Aspirin 81 MG Tab.Chew PO ONE (22:47)
[2022-07-20 22:51] LABS: BASOPHILS PERCENT AUTO 1.1 % (0.1-1.2); EOSINOPHILS ABSOLUTE AUTO 0.49 K/mm3 (0.04-0.36); EOSINOPHILS PERCENT AUTO 5.2 (0.7-5.8); HEMATOCRIT 40.7 % (34.1-44.9); HEMOGLOBIN 13.7 gm/dl (11.2-15.7); IMMATURE GRAN ABSOLUTE AUTO 0.02 K/mm3 (0.00-0.10); IMMATURE GRAN PERCENT AUTO 0.2 % (<=1.0); LYMPHOCYTES ABSOLUTE AUTO 3.42 K/mm3 (1.18-3.74); LYMPHOCYTES PERCENT AUTO 36.3 % (19.3-51.7); MEAN CORPUSCULAR HEMOGLOBIN 27.5 pg (25.6-32.2); MEAN CORPUSCULAR HGB CONC 33.7 g/dl (32.2-35.5); MEAN CORPUSCULAR VOLUME 81.6 fl (79.4-94.8); MEAN PLATELET VOLUME 11.5 fl (9.4-12.3); MONOCYTES ABSOLUTE AUTO 0.76 K/mm3 (0.24-0.36); MONOCYTES PERCENT AUTO 8.1 % (4.7-12.5); NEUTROPHILS ABSOLUTE AUTO 4.62 K/mm3 (1.56-6.13); NEUTROPHILS PERCENT AUTO 49.1 % (34.0-71.1); PLATELET COUNT,PLT 357 K/mm3 (182-369); RED BLOOD CELL COUNT 4.99 M/mm3 (3.98-5.22); WHITE BLOOD CELL COUNT,WBC 9.41 K/mm3 (3.98-10.04)
[2022-07-20 23:07] LABS: A/G RATIO 0.9 (1-2); ALANINE AMINOTRANSFERASE,ALT 25 U/L (14-59); ALBUMIN 3.2 g/dl (3.4-5.0); ALKALINE PHOSPHATASE 110 U/L (46-116); ANION GAP 9.6 (5-15); ASPARTATE AMNIOTRANSFERASE,AST 20 U/L (15-37); BILIRUBIN TOTAL 0.5 mg/dL (0.2-1.0); BLOOD UREA NITROGEN,BUN 15 mg/dL (7-18); BUN/CREATININE RATIO 18.8 (14-18); CALCIUM 8.6 mg/dL (8.5-10.1); CARBON DIOXIDE,CO2 28 mEq/L (21-32); CHLORIDE,CL 104 mEq/L (98-107); CREATININE 0.8 mg/dL (0.55-1.02); EST CRCL DRUG DOSING (CG) 103.63 mL/min; ESTIMATED GFR 104 mL/min (>60); GLUCOSE RANDOM 105 mg/dL (70-99); LIPASE 109 U/L (73-393); MAGNESIUM 1.8 mg/dL (1.8-2.4); POTASSIUM,K 3.6 mEq/L (3.5-5.1); PROTEIN TOTAL,TP 6.8 g/dl (6.4-8.2); SODIUM,NA 138 mEq/L (136-145)
[2022-07-20 23:10] LABS: C-REACTIVE PROTEIN < 0.2 mg/dL (<1.0); HCG QUANTITATIVE < 1.0 mIU/mL
[2022-07-20] MEDS ORDERED: Morphine 4 MG/ML Syringe IVPUSH ONE (23:35)
[2022-07-20 23:55] LABS: APPEARANCE,URINE CLEAR (Clear); BILIRUBIN,URINE NEGATIVE (Negative); COLOR,URINE LIGHT YELLOW (Yellow); GLUCOSE,URINE NEGATIVE (Negative); KETONES,URINE NEGATIVE (Negative); LEUKOCYTE ESTERASE,URINE NEGATIVE (Negative); NITRITE,URINE NEGATIVE (Negative); OCCULT BLOOD,URINE NEGATIVE (Negative); PH,URINE 6.5 (5.0-8.0); PROTEIN,URINE NEGATIVE (Negative); UROBILINOGEN,URINE 0.2 (0.2-1.0)
[2022-07-21] MEDS ORDERED: Alum Hydrox/Mag Hydrox/Simeth 30 ML, Lidocaine 2% 15 ML PO ONE ×2 (00:24)
[2022-07-21 00:46] LABS: BACTERIA,URINE RARE /hpf (FEW); MUCUS,URINE NOT SEEN /hpf (FEW); RBC,URINE NOT SEEN /hpf (0-5); SQUAMOUS EPITHELIAL CELLS,UR 0-5 /hpf (0-5); WBC,URINE 0-5 /hpf (0-5)
[2022-07-21] MEDS ORDERED: Ketorolac 30 MG/ML SDV IVPUSH ONE (01:31)
[2022-07-21 01:54] VITALS: BP 98/52; PULSE 86
== END 2022-07-21 01:42 | disposition home or self-care (01) ==
LOC: JD.ED 22:18
DX: R07.89 Other chest pain (principal); J45.909 Unspecified asthma, uncomplicated; E66.9 Obesity, unspecified; Z68.41 Body mass index [BMI] 40.0-44.9, adult; Z86.16 Personal history of COVID-19
CPT/HCPCS: 36415; 71046; 80053; 81001; 83690; 83735; 84484; 84702; 85025; 85379; 86140; 93005; 96361; 96374; 96375; 99285; A9270; J1885; J2405; J7030

== ENCOUNTER 2022-11-12 21:25 | Emergency (ER) | payer BC ==
[2022-11-13] MEDS ORDERED: Orphenadrine 100 MG Tab.ER PO STA (00:03)
[2022-11-13 01:27] VITALS: BP 119/69; PULSE 79
== END 2022-11-13 01:26 | disposition home or self-care (01) ==
LOC: JD.ED 21:25
DX: G44.209 Tension-type headache, unspecified, not intractable (principal); Z86.16 Personal history of COVID-19
CPT/HCPCS: 70450; 72125; 99284; A9270

== ENCOUNTER 2023-05-30 21:20 | Emergency (ER) | payer BC ==
[2023-05-30 21:38] VITALS: BP 136/75; PULSE 87
[2023-05-30] MEDS: Sodium Chloride 0.9% 10 ML Syringe FLUSH PRN (21:40)
[2023-05-30 21:46] LABS: BASOPHILS ABSOLUTE AUTO 0.1 K/mm3 (0.0-0.2); BASOPHILS PERCENT AUTO 1.1 % (0.0-1.0); EOSINOPHILS ABSOLUTE AUTO 0.4 K/mm3 (0.0-0.4); EOSINOPHILS PERCENT AUTO 4.6 % (0.0-6.0); HEMATOCRIT 42.9 % (37.0-47.0); HEMOGLOBIN 14.8 gm/dl (12.0-16.0); IMMATURE GRAN ABSOLUTE AUTO 0.02 K/mm3 (0.00-0.05); IMMATURE GRAN PERCENT AUTO 0.2 % (0.0-0.4); LYMPHOCYTES ABSOLUTE AUTO 3.3 K/mm3 (1.0-4.8); LYMPHOCYTES PERCENT AUTO 36.1 % (24.0-44.0); MEAN CORPUSCULAR HGB CONC 34.5 g/dl (32.0-36.0); MEAN PLATELET VOLUME 11.1 fl (9.4-12.3); MONOCYTES ABSOLUTE AUTO 0.7 K/mm3 (0.0-0.8); MONOCYTES PERCENT AUTO 7.3 % (0.0-8.0); NEUTROPHILS ABSOLUTE AUTO 4.6 K/mm3 (1.8-7.7); NEUTROPHILS PERCENT AUTO 50.7 % (41.0-71.0); PLATELET COUNT,PLT 342 K/mm3 (150-400); RED BLOOD CELL COUNT 5.11 M/mm3 (4.10-5.30); WHITE BLOOD CELL COUNT,WBC 9.08 K/mm3 (3.9-11.3)
[2023-05-30 22:02] LABS: APPEARANCE,URINE CLEAR (Clear); BILIRUBIN,URINE NEGATIVE (Negative); COLOR,URINE YELLOW (Yellow); GLUCOSE,URINE NEGATIVE (Negative); KETONES,URINE NEGATIVE (Negative); LEUKOCYTE ESTERASE,URINE NEGATIVE (Negative); NITRITE,URINE NEGATIVE (Negative); OCCULT BLOOD,URINE NEGATIVE (Negative); PROTEIN,URINE NEGATIVE (Negative); UROBILINOGEN,URINE 0.2 (0.2-1.0)
[2023-05-30 22:11] LABS: A/G RATIO 1.1 (1-2); ALBUMIN 3.4 g/dl (3.4-5.0); ANION GAP 11.6 (5-15); BILIRUBIN TOTAL 0.4 mg/dL (0.2-1.0); BUN/CREATININE RATIO 17.8 (14-18); C-REACTIVE PROTEIN 0.49 mg/dL (<0.30); CALCIUM 8.9 mg/dL (8.5-10.1); CREATININE 0.9 mg/dL (0.55-1.02); EST CRCL DRUG DOSING (CG) 91.31 mL/min; POTASSIUM,K 3.6 mEq/L (3.5-5.1); PROTEIN TOTAL,TP 6.6 g/dl (6.4-8.2)
[2023-05-30] MEDS ORDERED: Iopamidol 612 MG/ML 100 ML Bottle IVPUSH ONE (22:11)
[2023-05-30 22:25] LABS: BACTERIA,URINE FEW /hpf (FEW); RBC,URINE 0-5 /hpf (0-5); SQUAMOUS EPITHELIAL CELLS,UR 0-5 /hpf (0-5); WBC,URINE 0-5 /hpf (0-5)
[2023-05-30 22:26] LABS: MUCUS,URINE FEW /hpf (FEW)
== END 2023-05-30 23:12 | disposition home or self-care (01) ==
LOC: JD.ED 21:20
DX: R10.31 Right lower quadrant pain (principal); R10.32 Left lower quadrant pain; R07.89 Other chest pain; J45.909 Unspecified asthma, uncomplicated; Z79.899 Other long term (current) drug therapy; Z86.16 Personal history of COVID-19
CPT/HCPCS: 36415; 71046; 74177; 80053; 81001; 84484; 84703; 85025; 85379; 86140; 93005; 99285; J3490

== ENCOUNTER 2023-09-30 16:09 | Emergency (ER) | payer BC ==
[2023-09-30] MEDS ORDERED: Sodium Chloride 0.9% 10 ML Syringe FLUSH PRN (16:25)
[2023-09-30 17:06] LABS: BASOPHILS ABSOLUTE AUTO 0.1 K/mm3 (0.0-0.2); EOSINOPHILS ABSOLUTE AUTO 0.3 K/mm3 (0.0-0.4); EOSINOPHILS PERCENT AUTO 3.9 % (0.0-6.0); HEMATOCRIT 40.1 % (37.0-47.0); HEMOGLOBIN 13.6 gm/dl (12.0-16.0); IMMATURE GRAN ABSOLUTE AUTO 0.03 K/mm3 (0.00-0.05); IMMATURE GRAN PERCENT AUTO 0.3 % (0.0-0.4); LYMPHOCYTES ABSOLUTE AUTO 2.7 K/mm3 (1.0-4.8); LYMPHOCYTES PERCENT AUTO 30.8 % (24.0-44.0); MEAN CORPUSCULAR HEMOGLOBIN 28.9 pg (28.0-32.0); MEAN CORPUSCULAR HGB CONC 33.9 g/dl (32.0-36.0); MEAN CORPUSCULAR VOLUME 85.3 fl (83.0-99.0); MEAN PLATELET VOLUME 10.9 fl (9.4-12.3); MONOCYTES ABSOLUTE AUTO 0.6 K/mm3 (0.0-0.8); NEUTROPHILS ABSOLUTE AUTO 4.9 K/mm3 (1.8-7.7); PLATELET COUNT,PLT 307 K/mm3 (150-400); WHITE BLOOD CELL COUNT,WBC 8.69 K/mm3 (3.9-11.3)
[2023-09-30 17:22] LABS: APPEARANCE,URINE CLEAR (Clear); BILIRUBIN,URINE NEGATIVE (Negative); COLOR,URINE YELLOW (Yellow); GLUCOSE,URINE NEGATIVE (Negative); KETONES,URINE NEGATIVE (Negative); LEUKOCYTE ESTERASE,URINE NEGATIVE (Negative); NITRITE,URINE NEGATIVE (Negative); OCCULT BLOOD,URINE NEGATIVE (Negative); PROTEIN,URINE NEGATIVE (Negative); UROBILINOGEN,URINE 0.2 (0.2-1.0)
[2023-09-30 17:26] LABS: ANION GAP 12.8 (5-15); BILIRUBIN TOTAL 0.4 mg/dL (0.2-1.0); BUN/CREATININE RATIO 22.2 (14-18); C-REACTIVE PROTEIN 0.61 mg/dL (<0.30); CALCIUM 8.7 mg/dL (8.5-10.1); CREATININE 0.9 mg/dL (0.55-1.02); EST CRCL DRUG DOSING (CG) 90.5 mL/min; POTASSIUM,K 3.8 mEq/L (3.5-5.1)
[2023-09-30] MEDS: Magnesium Citrate Solution 296 ML Bottle PO ONE (18:59)
[2023-09-30 19:00] VITALS: BP 114/73; PULSE 85
== END 2023-09-30 19:00 | disposition home or self-care (01) ==
LOC: JD.ED 16:09
DX: K59.00 Constipation, unspecified (principal); Z86.16 Personal history of COVID-19; Z79.899 Other long term (current) drug therapy
CPT/HCPCS: 36415; 74019; 80053; 81003; 81025; 83690; 85025; 86140; 99284; A9270

== ENCOUNTER 2023-11-18 20:16 | Emergency (ER) | payer BC ==
[2023-11-18] MEDS: Sodium Chloride 0.9% 1,000 ML IV ONE (22:30)
[2023-11-18] MEDS: Ondansetron 4 MG/2 ML SDV IVPUSH ONE (22:31)
[2023-11-18] MEDS: Ondansetron 4 MG/2 ML SDV ONE (22:42)
[2023-11-18 22:45] LABS: BASOPHILS ABSOLUTE AUTO 0.1 K/mm3 (0.0-0.2); BASOPHILS PERCENT AUTO 0.8 % (0.0-1.0); EOSINOPHILS ABSOLUTE AUTO 0.1 K/mm3 (0.0-0.4); EOSINOPHILS PERCENT AUTO 1.3 % (0.0-6.0); HEMOGLOBIN 14.2 gm/dl (12.0-16.0); IMMATURE GRAN ABSOLUTE AUTO 0.02 K/mm3 (0.00-0.05); IMMATURE GRAN PERCENT AUTO 0.3 % (0.0-0.4); LYMPHOCYTES ABSOLUTE AUTO 1.5 K/mm3 (1.0-4.8); LYMPHOCYTES PERCENT AUTO 25.1 % (24.0-44.0); MEAN CORPUSCULAR HEMOGLOBIN 28.6 pg (28.0-32.0); MEAN CORPUSCULAR HGB CONC 33.8 g/dl (32.0-36.0); MEAN CORPUSCULAR VOLUME 84.5 fl (83.0-99.0); MEAN PLATELET VOLUME 11.7 fl (9.4-12.3); MONOCYTES ABSOLUTE AUTO 0.3 K/mm3 (0.0-0.8); MONOCYTES PERCENT AUTO 4.9 % (0.0-8.0); NEUTROPHILS PERCENT AUTO 67.6 % (41.0-71.0); PLATELET COUNT,PLT 247 K/mm3 (150-400); RED BLOOD CELL COUNT 4.97 M/mm3 (4.10-5.30); WHITE BLOOD CELL COUNT,WBC 5.93 K/mm3 (3.9-11.3)
[2023-11-18 22:46] LABS: APPEARANCE,URINE CLEAR (Clear); BILIRUBIN,URINE NEGATIVE (Negative); COLOR,URINE YELLOW (Yellow); GLUCOSE,URINE NEGATIVE (Negative); KETONES,URINE NEGATIVE (Negative); LEUKOCYTE ESTERASE,URINE NEGATIVE (Negative); NITRITE,URINE NEGATIVE (Negative); OCCULT BLOOD,URINE NEGATIVE (Negative); PH,URINE 6.5 (5.0-8.0); PROTEIN,URINE NEGATIVE (Negative); UROBILINOGEN,URINE 0.2 (0.2-1.0)
[2023-11-18 23:13] LABS: A/G RATIO 1.2 (1-2); ALBUMIN 3.4 g/dl (3.4-5.0); ANION GAP 9.6 (5-15); BILIRUBIN TOTAL 0.8 mg/dL (0.2-1.0); BUN/CREATININE RATIO 22.7 (14-18); CREATININE 1.1 mg/dL (0.55-1.02); EST CRCL DRUG DOSING (CG) 74.04 mL/min; POTASSIUM,K 3.6 mEq/L (3.5-5.1); PROTEIN TOTAL,TP 6.3 g/dl (6.4-8.2)
[2023-11-19] MEDS ORDERED: Naloxone 0.4 MG/ML SDV IVPUSH PRN (00:06)
[2023-11-19] MEDS: Morphine 4 MG/ML Syringe IVPUSH ONE (00:09)
== END 2023-11-19 01:57 | disposition home or self-care (01) ==
LOC: JD.ED 20:16
DX: R14.0 Abdominal distension (gaseous) (principal); R10.84 Generalized abdominal pain; R11.0 Nausea; Z79.899 Other long term (current) drug therapy; Z86.16 Personal history of COVID-19
CPT/HCPCS: 36415; 74176; 80053; 81003; 81025; 83605; 83690; 85025; 96361; 96374; 96375; 99284; J2270; J2405; J7030